=== PATIENT | male | born 1955 | race Caucasian/White ===

== ENCOUNTER 2018-03-25 15:49 | Inpatient (IN) ==
[2018-03-25] MEDS ORDERED: *HR* Heparin 5,000 UNIT/ML VIAL IVP PRN ×2 (15:50)
[2018-03-25] MEDS ORDERED: *HR* Heparin 5,000 UNIT/ML VIAL IVP ONE (15:50)
[2018-03-25] MEDS ORDERED: *HR* Midazolam HCl 5 MG/5 ML VIAL IVP ONE (15:52)
[2018-03-25] MEDS ORDERED: *HR* Ticagrelor 90 MG TABLET PO ONE (15:52)
[2018-03-25] MEDS ORDERED: *HR* FentaNYL (PF) 250 MCG/5 ML VIAL ONE (15:52)
--- NOTE | 2018-03-25 15:55 | Emergency Department Note ---
Disposition Clinical Impression: Cardiac arrest, STEMI (ST elevation myocardial infarction) Disposition: Admitted As Inpatient Condition: Critical General Adult HPI - General Chief complaint: ED Chest Pain Stated complaint: Chest pain Time Seen by Provider: 03/25/18 15:50 - Related Data Home Medications Medication Instructions Recorded Confirmed No Known Home Drugs 03/25/18 03/25/18 Allergies Allergy/AdvReac Type Severity Reaction Status Date / Time No Known Allergies Allergy Verified 03/25/18 16:01 Course Vital Signs Temperature 98.7 F 03/25/18 15:50 Pulse Rate 81 03/25/18 15:50 Respiratory Rate 20 03/25/18 15:50 Blood Pressure 133/87 03/25/18 15:50 O2 Sat by Pulse Oximetry 99 03/25/18 15:50 Temperature 97.9 F 03/25/18 17:56 Pulse Rate 66 03/25/18 18:39 Respiratory Rate 14 03/25/18 18:39 Blood Pressure 127/77 03/25/18 18:39 O2 Sat by Pulse Oximetry 98 03/25/18 18:39 Oxygen Delivery Oxygen Delivery Nasal Cannula Medical Decision Making - Lab Data Result diagrams: 03/25/18 15:56 03/25/18 16:00 Lab Results 03/25/18 03/25/18 03/25/18 Range/Units 15:50 15:56 16:00 WBC 13.8 H (4.3-11.1) K/mcL RBC 4.95 (4.19-5.50) M/mcL Hgb 14.5 (12.9-16.9) g/dL Hct 42.7 (37.5-50.1) % MCV 86.3 (83.0-100.0) fL MCH 29.3 (28.0-33.3) pg MCHC 34.0 (31.6-35.5) g/dL RDW 13.4 (11.5-14.5) % Plt Count 248 (140-400) K/mcL MPV 9.8 (9.4-12.4) fL Immature Gran % 0.4 (0-4) % Seg Neutrophils % 36.7 % Lymphocytes % 54.8 % Monocytes % 5.7 % Eosinophils % 1.8 % Basophils % 0.6 % Neutrophils # 5.1 (1.6-8.9) K/mcL Lymphocytes # 7.6 H (0.6-4.6) K/mcL Monocytes # 0.8 (0.0-1.3) K/mcL Eosinophils # 0.3 (0.0-0.6) K/mcL Basophils # 0.1 (0.0-0.2) K/mcL Reactive Lymphocytes Present A (Not Present) Immature Plt Fraction 2.7 (1.1-6.1) % PT 10.4 (9.4-12.1) Seconds INR 1.0 APTT 26.7 (26.0-36.0) Seconds Sodium 142 (136-145) mEq/L Potassium 3.0 L (3.5-5.1) mEq/L Chloride 107 (98-107) mEq/L Carbon Dioxide 24 (23-29) mEq/L BUN 13 (8-23) mg/dL Creatinine 1.16 (0.70-1.30) mg/dL Est GFR ( Amer) > 60 (> 60) Est GFR (Non-Af Amer) > 60 (> 60) BUN/Creatinine Ratio 11 (6-26) Glucose 146 H (70-105) mg/dL Calculated Osmolality 297 (280-300) Calcium 9.4 (8.6-10.3) mg/dL Troponin I < 0.03 (< 0.04) ng/mL Attestation Statement - Attestation Attestation: I examined this patient and my medical decision-making was reviewed with the Resident Physician. I agree with the documented findings, disposition and treatment plan as described except to the extent set forth below. [id number] time provided I was alerted to prehospital EMS ST segment elevation myocardial infarction pattern. We anticipated the patient's arrival. The patient reports 30 minutes of chest pain. He is diaphoretic. EMS had to defibrillate the patient twice for suspected ventricular fibrillation. The patient denies having any previous cardiac or other medical history. EKG repeated upon arrival showing ST segment elevation in the septal leads. The patient will go to the cardiac catheter lab. Protocol orders initiated
[2018-03-25] MEDS ORDERED: 0.9 % Sodium Chloride 1,000 ML ONE ×2 (15:56→16:03)
[2018-03-25] MEDS ORDERED: Nitroglycerin 1,000 MCG/10 ML VIAL IV ONE ×2 (15:56→16:30)
[2018-03-25] MEDS ORDERED: *HR* Heparin 10,000 UNIT/10 ML VIAL ONE (15:56)
[2018-03-25] MEDS ORDERED: ISOVUE-370 200 ML INFUS..BTL IV ONE ×2 (15:56→16:25)
[2018-03-25] MEDS ORDERED: Heparin 1,000 UNITS/500 mL 500 ML ONE (15:56)
[2018-03-25] MEDS ORDERED: Verapamil 5 MG/2 ML VIAL ONE (15:56)
[2018-03-25] MEDS ORDERED: Lidocaine Drip 2 GM/500 ML IV.SOLN IVC SCH ×2 (16:00)
[2018-03-25] MEDS ORDERED: Heparin 25,000 UNIT/500 ML D5W 25,000 UNIT/500 ML BAG IVC SCH (16:00)
--- NOTE | 2018-03-25 16:00 | Emergency Department Note ---
Disposition Clinical Impression: Cardiac arrest STEMI (ST elevation myocardial infarction) Qualifiers: Involved coronary artery: unspecified coronary artery Qualified Code(s): I21.3 - ST elevation (STEMI) myocardial infarction of unspecified site Disposition: Admitted As Inpatient Condition: Critical Forms: ED Satisfaction Letter Time of Disposition: 16:03 Chest Pain HPI - General Chief Complaint: ED Chest Pain Stated Complaint: Chest pain Time Seen by Provider: 03/25/18 15:50 Source: EMS Vital Signs Reviewed: Yes Nursing Notes Reviewed: Yes - History of Present Illness HPI Narrative: Mr. Abdalla comes from home via EMS reports of chest pain. In route, patient went into pulseless V. fib twice and was successfully cardioverted back to a perfusing rhythm. He is now awake. 30 minutes prior to arrival, patient was finishing planting a large push when he experienced a dull intense heavy central chest pain with bilateral arm heaviness. He did not have any dyspnea or nausea. PMH: Chronic pain. No history of CAD, ACS, hypertension, hyperlipidemia, diabetes. Severity scale (1-10): 5 - Related Data Home Medications Medication Instructions Recorded Confirmed No Known Home Drugs 03/25/18 03/25/18 Allergies Allergy/AdvReac Type Severity Reaction Status Date / Time No Known Allergies Allergy Verified 03/25/18 16:01 Limitations: ROS unobtainable due to patients medical condition Chest Pain PMH - Past Medical History Medical history: Reports: no medical history Psychiatric history: Reports: no psych history - Social History Smoking Status: Current every day smoker Alcohol use: Reports: none Drug use: Reports: none Physical Exam Vital Signs Reviewed General: Patient is alert, oriented, and in mild to moderate acute distress-he is just been defibrillated twice by EMS. Head: atraumatic, normocephalic Eye: normal appearance, no scleral icterus, no conjunctival injection ENT: mucous membranes moist, normal external ear exam Neck: normal inspection, trachea midline, full ROM Chest: normal inspection, symmetric chest rise Respiratory: Good respiratory effort. Bilateral breath sounds are clear without wheezing, crackles, or rhonchi. Cardiovascular: Regular rate and rhythm. No clicks, rubs, gallops, or murmors. Normal heart sounds. Bilateral radial pulses 2/4 and equal. Musculoskeletal: Spontaneously moving all extremities. Skin: Diaphoretic, cool, pink, intact. Neuro: Alert and oriented x4. Sensation light touch intact. Psych: Patient's affect is appropriate for situation. - General General appearance: alert, anxious Course Course Narrative: Squad called in noting that they have cardioverted the patient twice. [employer] called. On arrival, patient is awake, alert, oriented, answering questions appropriately, reports mild chest dullness. EKG shows STEMI in the LAD distribution. Additional peripheral IV access obtained and patient placed on lidocaine-100 mg bolus and 3 mg per minute drip. Brilenta, heparin, nitroglycerin ordered however, patient went to [employer] prior to administration. Patient's was brought bedside. She was updated to the current situation and the next steps. He is able speak with him prior to him going to [employer]. EKG dated 6 2017 at 15:52 interpreted as sinus rhythm with a rate of 81. Normal intervals. Normal axis. Significant ST elevation in leads V1, V2, V3, V4, V5, V6 most probably in V2 through V4. ST depression with T-wave inversion in lead 3 and aVF. Vital Signs Temperature 98.7 F 03/25/18 15:50 Pulse Rate 81 03/25/18 15:50 Respiratory Rate 20 03/25/18 15:50 Blood Pressure 133/87 03/25/18 15:50 O2 Sat by Pulse Oximetry 99 03/25/18 15:50 Temperature 98.7 F 03/25/18 15:50 Pulse Rate 81 03/25/18 15:50 Respiratory Rate 20 03/25/18 15:50 Blood Pressure 133/87 03/25/18 15:50 O2 Sat by Pulse Oximetry 99 03/25/18 15:50 Oxygen Delivery Oxygen Delivery Nasal Cannula Heart Score - Score History: Highly Suspicious EKG: Significant ST-Depression Age: 45-65 Risk Factors: 1-2 risk factors Troponin: 1-3x normal limit HEART Score Total: 7
[2018-03-25 16:09] LABS: Basophils # 0.1 K/mcL (0.0-0.2); Basophils % 0.6 %; Eosinophils # 0.3 K/mcL (0.0-0.6); Eosinophils % 1.8 %; Hematocrit 42.7 % (37.5-50.1); Hemoglobin 14.5 g/dL (12.9-16.9); Immature Granulocytes % 0.4 % (0-4); Immature Platelets 2.7 % (1.1-6.1); Lymphocytes # 7.6 K/mcL (0.6-4.6); Lymphocytes % 54.8 %; Mean Corpuscular Hemoglobin 29.3 pg (28.0-33.3); Mean Corpuscular Volume 86.3 fL (83.0-100.0); Mean Platelet Volume 9.8 fL (9.4-12.4); Monocytes # 0.8 K/mcL (0.0-1.3); Monocytes % 5.7 %; Neutrophils # 5.1 K/mcL (1.6-8.9); Platelet Count 248 K/mcL (140-400); Red Blood Count 4.95 M/mcL (4.19-5.50); Red Cell Distribution Width 13.4 % (11.5-14.5); Segmented Neutrophils % 36.7 %
[2018-03-25] MEDS ORDERED: Tirofiban 12.5 MG/250ML 12.5 MG/250 ML BAG ONE (16:13)
[2018-03-25 16:17] LABS: Prothrombin Time 10.4 Seconds (9.4-12.1)
[2018-03-25 16:19] LABS: Activated Partial Thrombo Time 26.7 Seconds (26.0-36.0)
[2018-03-25] MEDS ORDERED: Lidocaine 2% Syringe 100 MG/5 ML IVP ONE (16:30)
[2018-03-25 16:31] LABS: BUN/Creatinine Ratio 11 (6-26); Blood Urea Nitrogen 13 mg/dL (8-23); Calcium 9.4 mg/dL (8.6-10.3); Carbon Dioxide 24 mEq/L (23-29); Chloride 107 mEq/L (98-107); Glucose 146 mg/dL (70-105); Osmolality,Calculated 297 (280-300); Sodium 142 mEq/L (136-145); Troponin I < 0.03 ng/mL (< 0.04); eGFR For African Americans > 60 (> 60); eGFR For Non-African Americans > 60 (> 60)
[2018-03-25 16:35] LABS: Reactive Lymphocytes Present (Not Present)
[2018-03-25] MEDS ORDERED: *HR* Ticagrelor 90 MG TABLET ONE (16:54)
[2018-03-25] MEDS ORDERED: Tirofiban 12.5 MG/250ML 12.5 MG/250 ML BAG IVC SCH (17:00)
--- NOTE | 2018-03-25 17:04 | Pre-Sedation Evaluation ---
Pre-sedation evaluation - Pre-sedation checklist Date of procedure: 03/25/18 Procedure: [facility] Recent Vitals: Last Vital Signs Temp 98.7 F 03/25/18 16:04 Pulse 81 03/25/18 15:50 Resp 22 03/25/18 16:04 BP 133/87 03/25/18 16:04 Pulse Ox 99 03/25/18 15:50 H&P (including ROS) documented in medical record: Yes Previous reaction to sedatives/anesthetics: No Dietary Status: unknown Airway Assessment: Patient can open mouth completely, TMJ function normal ASA Classification *see protocol: CLASS II-Mild systemic disease, E-EMERGENCY- Add to any of the above to indicate emergent (stemi - critically ill pt sp defibrillation) Plan of Care: Pt appropriate candidate for procedure/moderate/conscious sedation , Risks/benefits of procedure/sedation discussed w/ patient/family, If not NPO; Risk of intake outweiged by necessity to perform procedure
--- NOTE | 2018-03-25 17:06 | Cardiology History & Physical ---
Date of Encounter: 03/25/18 Time of Encounter: 17:00 Assessment and Plan (1) Cardiac arrest Current Visit: Yes Status: Acute Anteroseptal current of injury - life threatening illness. Critical care time 1 hour. A/R/B of LHC discussed with him and he is aware and agreeable with proceeding. Aspirin, brilinta, and heparin to be given. EF assessment, echo. High intensity statin. The assessment and plan as outlined above was discussed with the patient and/or family members who expressed understanding and agreement. All questions were answered. (2) STEMI (ST elevation myocardial infarction) Current Visit: Yes Status: Acute Emergent [facility]. The assessment and plan as outlined above was discussed with the patient and/or family members who expressed understanding and agreement. All questions were answered. Qualifiers: Involved coronary artery: LAD coronary artery Qualified Code(s): I21.02 - ST elevation (STEMI) myocardial infarction involving left anterior descending coronary artery History of Present Illness Chief complaint: chest pain HPI: Mr. Abdalla is a 62 year old male with no previous cardiac history was planting a tree today ~330pm when he had sudden onset severe 10-10 retrosternal chest pressure radiating across chest associated with diaphoresis. Called EMS and was defibrillated twice in the squad before arriving here with EKG showing anteroseptal NV current of injury. Patient continued having chest discomfort and taken emergently to lab associate. No other medical issues except for some chronic pain. Past Med Surg Social Fam HX - Past Medical History Medical history: no medical history Psychiatric history: no psych history - Social History Smoking Status: Current every day smoker Smokeless Tobacco Status: No Alcohol use: none Drug use: none Medications and Allergies No Known Home Drugs 03/25/18 [History] 3 Allergy/AdvReac Type Severity Reaction Status Date / Time No Known Allergies Allergy Verified 03/25/18 16:01 All Systems Review: The remainder of the systems were reviewed and are negative - Constitutional Constitutional: no chills, no fever(s) - EENT Eyes: no blurred vision, no loss of vision Nose, mouth and throat: no bleeding gums, no epistaxis - Cardiovascular Cardiovascular: chest pain at rest, chest pain with exertion - Respiratory Respiratory: no hemoptysis, no wheezing - Gastrointestinal Gastrointestinal: no hematemesis, no hematochezia - Genitourinary Genitourinary: no hematuria, no nocturia - Musculoskeletal Musculoskeletal: no abnormal gait, no muscle cramps - Integumentary Integumentary: no erythema, no unusual bruising - Neurological Neurological: syncope, no abnormal speech, no tingling - Psychiatric Psychiatric: no anxiety, no depression - Hematological/Lymphatic Hematologic/Lymphatic: no easy bleeding, no easy bruising Physical Examination General: Conversant, Other (mild distress) HEENT: Atraumatic Neck: No JVD Cardiac: Reg Rate and Rhythm Lungs: Normal Breath Sounds Neuro: Alert and responsive Abdomen: Soft Skin: No rashes noted on visualized skin Musculoskeletal: No Chest Wall Tenderness Extremities: No Edema Results 03/25/18 15:56 03/25/18 16:00 - EKG Interpretation EKG results cardiology: personally reviewed, sinus rhythm (anteroseptal current of injury)
--- NOTE | 2018-03-25 17:11 | Invasive Diagnostic Lab Proc ---
Name: Nic Abdalla Date of Study: 03/25/2018 Date: 1955 Ht: 66.1in Medical Record#: [id number] Age: 62 Wt: 218.26lb Gender: Male BSA: 2.08 Order #: [id number] BMI: 35.08 Physicians Procedure Physician: Peter Farrell MD, FACC Referring MD: Referring MD: Staff Name Position [facility] Monitor 04:04 PM Deepak Estrada RN Curator Of Collections 04:04 PM Livier Bain RT (R) Scrub 04:04 PM Indications Indication STEMI Procedures Performed Procedure L HRT ARTERY/VENTRICLE ANGIO PRQ CARD LAVINIA STENT W/ANGIO 1 VSL Pre-Procedure Checklist Informed consent is complete signed and on chart. H&P is on chart. ID band is on and ID verified with patient. Patient NPO for procedure The procedure was described for the patient and questions were answered. Blood Pressure: 123/82 ECG is on chart. Rhythm: NSR Plan of Care Patient will tolerate the procedure without complications. Adequate level of comfort will be maintained. Hemodynamics will remain stable Patient will recover from procedure without complications. Respiratory function will be maintained. Cardiac rhythm will remain stable. Patient temperature will be maintained. Patient and/or family have verbalized understanding of the procedure. Patient Education Allergies No Known Allergies NKDA Vital Signs Time BP (mmHg) HR (bpm) O2 Sat. RR (bpm) LOC 04:10 PM / % 4 = Oriented but drowsy 04:10 PM / % 4 = Oriented but drowsy 04:25 PM / % 4 = Oriented but drowsy 04:04 PM 123 / 82 73 99 % 04:09 PM 125 / 75 73 100 % 04:14 PM 105 / 66 69 92 % 04:19 PM 99 / 52 66 91 % 04:24 PM 93 / 59 72 96 % 04:29 PM 89 / 47 66 92 % 04:34 PM 91 / 44 62 96 % 04:39 PM 91 / 39 69 96 % 04:44 PM 105 / 48 66 97 % Procedural Medications Time Medication Dose Units Method Given By 04:11 PM Oxygen 2 L/min nasal cannula Deepak Estrada RN 04:11 PM Versed 2 mg Intravenous Deepak Estrada RN 04:11 PM Fentanyl 50 mcg Intravenous Deepak Estrada RN 04:12 PM Lidocaine 2% 0.5 ml Subcutaneous Peter Farrell MD, FACC 04:12 PM Heparin 4000 units Nitroglycerin 200 mcg Verapamil 2.5 mg Intraarterial Peter Frarell MD, FACC 04:19 PM Aggrastat Bolus: 50 ml Intravenous Deepak Estrada RN 04:19 PM Aggrastat 12.5mg/250ml 18 ml/hr Intravenous Deepak Estrada RN 04:19 PM Oxygen 4 L/min nasal cannula Deepak Estrada RN 04:28 PM Nitroglycerin 100 mcg Intracoronary Peter Farrell MD 04:30 PM Nitroglycerin 100 mcg Intracoronary Peter Farrell MD 04:38 PM Nitroglycerin 200 mcg Intracoronary Peter Farrell MD 04:41 PM Brilinta 180 mg Orally Deepak Estrada RN Joseph Score Preprocedure Postprocedure Activity Activity Circulation Circulation Consciousness Consciousness O2 Saturation O2 Saturation Respiratory Respiratory Total Score Total Score Contrast Agent: Isovue Diagnostic Contrast: 144 ml Total Contrast: 144 ml Fluoro Dose: 830 mGy Activated Clotting Time Time Seconds to Clot 04:31 PM 307 Procedure Log Time Note Enter By 04:00 PM Pt arrived to medical lab specialist 2 at 16:00 [facility] 04:04 PM Vitals capture started with the following parameters, Patient=Adult, Interval=5 min, Initial Febvbxdm=803 mmHg, Deflation Rate=5 mmHg, Cuff placed on Right Arm 04:04 PM Britta Benson RN Position: Monitor Time in: 16:04 [email or web address] 04:04 PM Deepak Estrada RN Position: Curator Of Collections Time in: 16:04 mm 04:04 PM Livier Bain RT (R) Position: Scrub Time in: 16:04 [email or web address] 04:04 PM Patient charges- Angio tray pack, Navilyst 3mm J, Pulse Oximetry and ACIST tubing and transducer tsmm 04:04 PM Case Delayed No mm 04:04 PM Hair removed from procedure site in procedure lab using clippers. Right wrist & Right groin prepped with Chloraprep by Livier Bain (R), then patient was draped. Skin intact. mm 04:04 PM Deven paged/called 16:04. tsoummers 04:04 PM Deven responded and notified patient is ready 16:04 [email or web address] 04:04 PM Physician arrived 16:04 mm 04:04 PM Sign in performed according to hospital policy. [email or web address] 04:04 PM Meet and greet completed tsoummers 04:04 PM Procedure start 16:04 tsoummers 04:04 PM CathStat 04:04 PM HR=73 bpm, DGWW=581/82 mmhg, SpO2=99.0 % 04:05 PM Recorded ECG: HR=81 Condition=Condition 1 04:08 PM Recorded ECG: HR=72 Condition=Condition 1 04:09 PM HR=73 bpm, UUNT=567/75 mmhg, PtR9=096.0 % 04:10 PM Time: 16:10 Patient comfortable and pain free: Yes [email or web address] 04:10 PM Time: 16:10LOC: 4 = Oriented but drowsy tsoummers 04:10 PM Clinical Presentation: STEMI or equivalent [email or web address] 04:10 PM Time out performed according to hospital policy tsoumm 04:11 PM Time: 16:11 Oxygen on at 2 L/min per nasal cannula by Deepak Estrada RN 04:11 PM Time: 16:11 Versed 2 mg Intravenous Given by Deepak Estrada RN 04:11 PM Time: 16:11 Fentanyl 50 mcg Intravenous Given by Deepak Estrada RN 04:12 PM Time: 16:12 0.5 ml Lidocaine 2% to right radial Subcutaneous Given by Peter Farrell MD, [facility] 04:12 PM Access obtained by percutaneous puncture. 6Fr 10cm Terumo Glidesheath sheath placed in right Radial artery. [id number] mm 04:12 PM Time: 16:12 Patient given 4,000 units Heparin, 200 mcg Nitroglycerin, and 2.5 mg Verapamil Intraarterial by Peter Farrell MD, [facility]. This is given to reduce risk of vessel spasm and thrombosis. tsoumm 04:13 PM 6Fr CLS 3.0 Runway guide catheter was used to cannulate the PCI vessel successfully. reused? No tsoummers 04:13 PM 0.035 260cm Navilyst 3mmJ wire [id number] mm 04:13 PM LCA angiography performed in multiple views. oummers 04:13 PM Recorded Pressure: Ao, HR=72, Condition=Condition 1 (Aorta) Ao 82/53/67 04:14 PM J wire removed tsmm 04:14 PM HR=69 bpm, TPMB=343/66 mmhg, SpO2=92.0 % 04:15 PM .014 [place] 180cm guide wire across target lesion- successful. reused? No mm 04:16 PM 2.5 mm x 12 mm Emerge Monorail balloon across target lesion- successful. reused? No mm 04:17 PM Lesion found in 1st Marginal. Pre Stenosis: 90 Pre MAR Flow: 3: Complete and Brisk Flow/Perfusion 04:17 PM Circumflex, Obtuse Marginal, Left Posterior Descending, and Left Posterolateral Coronary Arteries with 90 % stenosis. If graft is supplying this area, 0 % stenosis [facility] 04:18 PM Balloon inflated @ 6 nani for 8 seconds [facility] 04:19 PM Balloon inflated @ 10 nani for 10 seconds [facility] 04:19 PM Time: 16:19 Aggrastat Bolus: 50 ml Intravenous Given by Deepak Estrada RN Mcfadden pump [facility] 04:19 PM Time: 16:19 Aggrastat 12.5mg/250ml 18 ml/hr Intravenous Given by Deepak Estrada RN Mcfadden pump [facility] 04:19 PM HR=66 bpm, NIBP=99/52 mmhg, SpO2=91.0 % 04:19 PM Time: 16:19 Oxygen on at 4 L/min per nasal cannula [facility] 04[facility] PM Balloon catheter removed intact. 04:21 PM 3.0mm x 24mm Synergy drug-eluting stent across target lesion- successful Lot #[id number] 04:22 PM Stent deployed @ 12 nani for 15 seconds 04:23 PM Stent delivery system removed intact. 04:24 PM 3.0 mm x 15mm NC Trek Rx balloon across target lesion- successful. reused? No mm 04:24 PM Recorded Pressure: Ao, HR=65, Condition=Condition 1 (Aorta) Ao 75/48/61 04:24 PM HR=72 bpm, NIBP=93/59 mmhg, SpO2=96.0 % 04:25 PM Balloon inflated @ 16 nani for 11 seconds oumm 04:25 PM Time: 16:10LOC: 4 = Oriented but drowsy tsoumm 04:25 PM Time: 16:10 Patient comfortable and pain free: Yes [email or web address] 04:26 PM Pressure channel 1 zeroed. 04:26 PM Recorded Pressure: Ao, HR=61, Condition=Condition 1 (Aorta) Ao 104/82/94 04:28 PM Time: 16:28 Nitroglycerin 100 mcg Intracoronary Given by Peter Farrell MD 04:29 PM HR=66 bpm, NIBP=89/47 mmhg, SpO2=92.0 %, Comment=nsr 04:30 PM Time: 16:30 Nitroglycerin 100 mcg Intracoronary Given by Peter Farrell MD 04:31 PM At 16:31 the ACT was 307 seconds. tsoummers 04:31 PM Balloon catheter removed intact. tsoummers 04:33 PM Guide wire removed intact. tsoummers 04:33 PM Guide catheter removed intact. tsoumm 04:34 PM 5Fr TIG catheter inserted over the wire [facility] 04:34 PM Coronary Dominance: Left ts 04:34 PM HR=62 bpm, NIBP=91/44 mmhg, SpO2=96.0 %, Comment=nsr 04:35 PM RCA angiography performed in multiple views. tsoumm 04:35 PM [facility] 04[facility] PM 5Fr Pigtail catheter inserted over the wire [facility] mm 04:36 PM Catheter selectively placed in left ventricle tsoumm 04:36 PM Bolus angiogram of left Ventricle complete: 10 ml/sec for a total of 30 mls [facility] 04:37 PM Recorded Pressure: LV, HR=?, Condition=Condition 1 (Left Ventricle) LV ?/?/? 04:37 PM Recorded Pressure: LV, HR=?, Condition=Condition 1 (Left Ventricle) LV ?/?/? 04:37 PM Recorded Pressure: LV, HR=11, Condition=Condition 1 (Left Ventricle) LV ?/?/? 04:38 PM Recorded Pressure: LV, HR=18, Condition=Condition 1 (Left Ventricle) LV 121/20/50 04:38 PM Time: 16:38 Nitroglycerin 200 mcg Intracoronary Given by Peter Farrell MD 04:38 PM Pressure channel 1 zeroed. 04:39 PM Recorded Pressure: LV, HR=23, Condition=Condition 1 (Left Ventricle) LV 100/14/34 04:39 PM HR=69 bpm, NIBP=91/39 mmhg, SpO2=96.0 % 04:40 PM Recorded Pressure: LV, Ao, HR=69, Condition=Condition 1 (Left Ventricle) LV 103/12/31, (Aorta) Ao 90/60/73 04:40 PM Catheter removed tsoumm 04:40 PM Time: 16:25 Patient comfortable and pain free: Yes tsoummers 04:40 PM Time: 16:25LOC: 4 = Oriented but drowsy tsoummers 04:41 PM Procedure completed at 16:41 tsoummers 04:41 PM Time: 16:41 Brilinta 180 mg Orally Given by Deepak Estrada RN tsoumm 04:42 PM Did you address MAR flow and Dominance? Yes oummers 04:42 PM Sign out completed: Radiation Dose 829.50 mGy Fluoro Time: 5.9 Isovue 370 - 200ml contrast 144 ml given by Peter Farrell MD, [facility]. Complications: NoneCardiac Rehab Consult needed: YesConfirmed administered medications: Yes oummers 04:42 PM Arterial sheath pulled, Vasc Band closure device used and was Successful S/N. tsoummers 04:42 PM 10 ml air in Vasc Band. tsoummers 04:44 PM HR=66 bpm, SYNW=099/48 mmhg, SpO2=97.0 % 04:44 PM Lesion found in Proximal LAD. Pre Stenosis: 100 Pre MAR Flow: 0: No Flow/No perfusion tsoummers 04:44 PM Proximal Left Anterior Descending Coronary Artery with 100% stenosis. If graft is supplying this territory, 0 % stenosis. tsoummers 04:47 PM Post ECG NSR tsoummers 04:47 PM Estimated Blood Loss: less than 20cc tsoummers 04:47 PM Post Blood Pressure 105/48 tsoummers 04:47 PM 16:47 Post Pulses Rt Radial 1+ tsoummers 04:47 PM Information taught tsoummers 04:47 PM Information taught PCI, Cardiac Cath, and Vasc Band tsoummers 04:47 PM Education needs Procedure, Plan of Care, and Responsibilities of Patient in Care tsoummers 04:47 PM Learning barriers :None tsoummers 04:47 PM Education Methods Verbal tsoummers 04:47 PM Education evaluation Able to repeat information [facility] 04:47 PM Site status No bleeding/hematoma - Rt Wrist as reported by Livier Bain RT (R) at 16:47 [facility] 04[facility]48 PM Plavix, Effient or Brilinta given Yes [email or web address] 04:48 PM Delay to floor No tsoumm 04:48 PM Family placed in consult room. [email or web address] 04:48 PM Complications: None [facility] 04:48 PM Fluoro Time: 5.9 [facility] 04:48 PM Isovue 370 - 200ml contrast [address] Farrell. [facility] 04:48 PM Radiation Dose 829.50 mGy [facility] 04:56 PM Report given to Zenia FERGUSON Pt taken to ICU Room #3. 16:56 [facility] 04[facility]56 PM Patient out of room: 16:56 [facility] Complications Complication None Hemodynamics Pressures Site Systolic/A Wave Diastolic/V Wave Mean AO 82 53 67 AO 75 48 61 AO 104 82 94 LV LV LV LV 121 20 50 LV 100 14 34 LV 103 12 31 AO 90 60 73 Post Procedure Information Blood Pressure: 105/48 mmHg Rhythm: NSR Post procedural instructions were given Closure Device Time Device Success/Fail 03/25/2018 4:42:00 PM Mechanical Compression Successful Site Checks Time Location Status Staff Sheath In? Note 04:47 PM Rt Wrist No bleeding/hematoma Livier Bain RT (R) Pulses Time Site Pre-Procedure Post-Procedure Note 4:47:00 PM Rt Radial 1+ Updated by Britta Benson RN on 03/25/2018 4:57:36 PM electronically signed on 03/25/2018 5:03:06 PM with status of Final
[2018-03-25] MEDS: *HR* HYDROcodone/Acet 5/325 mg TABLET PO PRN ×2 (18:42→23:12)
[2018-03-25] MEDS: *HR* Ticagrelor 90 MG TABLET PO SCH (20:13)
[2018-03-25] MEDS: Nitroglycerin 0.4 MG TAB.SUBL SL PRN ×2 (20:58→21:26)
[2018-03-26] MEDS: Ondansetron 4 MG/2 ML VIAL IVP PRN ×2 (02:21→09:29)
[2018-03-26 04:22] LABS: Basophils % 0.2 %; Eosinophils % 0.1 %; Hematocrit 38.9 % (37.5-50.1); Hemoglobin 13.1 g/dL (12.9-16.9); Immature Granulocytes % 0.3 % (0-4); Lymphocytes # 2.8 K/mcL (0.6-4.6); Lymphocytes % 18.3 %; Mean Corpuscular HGB Conc 33.7 g/dL (31.6-35.5); Mean Corpuscular Hemoglobin 29.3 pg (28.0-33.3); Mean Platelet Volume 10.3 fL (9.4-12.4); Monocytes # 0.8 K/mcL (0.0-1.3); Monocytes % 5.5 %; Neutrophils # 11.4 K/mcL (1.6-8.9); Platelet Count 192 K/mcL (140-400); Red Blood Count 4.47 M/mcL (4.19-5.50); Red Cell Distribution Width 13.8 % (11.5-14.5); Segmented Neutrophils % 75.6 %
[2018-03-26] MEDS: Nitroglycerin 0.4 MG TAB.SUBL SL PRN ×3 (04:27→04:38)
[2018-03-26 04:42] LABS: BUN/Creatinine Ratio 16 (6-26); Blood Urea Nitrogen 15 mg/dL (8-23); Calcium 8.7 mg/dL (8.6-10.3); Carbon Dioxide 23 mEq/L (23-29); Chloride 109 mEq/L (98-107); Glucose 125 mg/dL (70-105); Osmolality,Calculated 290 (280-300); Potassium 4.2 mEq/L (3.5-5.1); Sodium 139 mEq/L (136-145); eGFR For African Americans > 60 (> 60); eGFR For Non-African Americans > 60 (> 60)
[2018-03-26] MEDS ORDERED: Nitroglycerin 1 INCH/GM PACKET TP ONE (04:49)
[2018-03-26] MEDS ORDERED: *HR* Enoxaparin 40 MG/0.4 ML SYRINGE SQ SCH (06:00)
[2018-03-26] MEDS: *HR* HYDROcodone/Acet 5/325 mg TABLET PO PRN ×2 (06:22→18:56)
[2018-03-26] MEDS ORDERED: Perflutren Lipid Microsphere 1.3 ML in 0.9 % Sodium Chloride 8.7 ML IVP ONE (07:45)
[2018-03-26] MEDS: *HR* Ticagrelor 90 MG TABLET PO SCH ×2 (08:33→21:31)
--- NOTE | 2018-03-26 08:44 | Cardiology Progress Note ---
Date of Encounter: 03/26/18 Time of Encounter: 08:00 Assessment and Plan (1) STEMI (ST elevation myocardial infarction) Current Visit: Yes Status: Acute Acute anteroseptal MS s/p successful PCI with LAVINIA to pLAD; has existing 80% OM1 disease, plan to stage as outpatient if remains chest pain free as inpatient. EF 55% per LV gram. TTE pending. No prior cardiac history. Cardiac rehab, DAPT (asa + brilinta), statin, and BB. Had chest discomfort overnight, likely secondary to defibrillation x2 on EMS. ECG improved. No issues with radial cath site. Labs, vitals stable. Plan to step out of ICU later today or in AM if remains stable. Continue to monitor closely. Qualifiers: Involved coronary artery: LAD coronary artery Qualified Code(s): I21.02 - ST elevation (STEMI) myocardial infarction involving left anterior descending coronary artery (2) Cardiac arrest Current Visit: Yes Status: Acute s/p defibrillation x2 for reported V-fib en route to [facility]. Secondary to acute MS No recurrent ventricular arrhythmias noted s/p PCI. Continue to monitor. (3) Tobacco dependence Current Visit: Yes Status: Acute Smoking cessation counseling provided. Has interest in quitting post discharge. Nicotine patches as inpatient. (4) Chronic pain Current Visit: Yes Status: Acute Resume home medications including percocet. Qualifiers: Chronic pain type: chronic pain syndrome Qualified Code(s): G89.4 - Chronic pain syndrome Discussion w patient/family: The assessment and plan as outlined above was discussed with the patient and/or family members who expressed understanding and agreement. All questions were answered. Thank you for involving us in the care of your patient. Please call with any questions. The patient will be discussed and reviewed with Dr. Farrell; changes to be made accordingly. Subjective Principal diagnosis: STEMI, anteroseptal Interval history: Seen and examined. Reports mild chest tightness this morning, was unable to sleep overnight. Pain worsens with deep breathing. Different from presenting chest. No issues with right radial cath site. Objective Vital Signs, Last 4 Hours Temp Pulse Resp BP Pulse Ox 03/26/18 08:00 55 16 112/67 97 03/26/18 07:48 97.5 F L 03/26/18 06:00 57 16 106/70 98 03/26/18 05:00 48 12 114/74 94 General: Conversant, No Apparent Distress HEENT: Atraumatic, Normocephaly, Mucus Membranes Moist Cardiac: Reg Rate and Rhythm, Normal S1 and S2 Lungs: Normal Breath Sounds Neuro: Alert and responsive Abdomen: Soft Skin: No rashes noted on visualized skin Musculoskeletal: No Chest Wall Tenderness Extremities: No Edema, Normal Pulses Other: right radial cath site: dressing C/D/I, +2 pulses, brisk cap refill Results 03/26/18 03:53 03/26/18 03:53 Lab Results 03/26/18 03/26/18 03:53 03:53 WBC 15.0 H Hgb 13.1 Hct 38.9 Plt Count 192 Sodium 139 Potassium 4.2 D Chloride 109 H Carbon Dioxide 23 BUN 15 Creatinine 0.92 Glucose 125 H Calcium 8.7 Active Medications Acetaminophen (Tylenol) 500 mg PO Q6H PRN PRN Reason: Mild Pain Stop: 09/24/18 16:59 Last Admin: 03/25/18 20:12 Dose: 500 mg Hydrocodone Bitart/Acetaminophen ([place] 5-325 Mg) 1 tab PO Q4H PRN PRN Reason: Moderate Pain Stop: 09/24/18 17:03 Last Admin: 03/26/18 06:22 Dose: 1 tab Aspirin (Aspirin) 81 mg PO DAILY YUE Stop: 09/25/18 09:01 Last Admin: 03/26/18 08:33 Dose: 81 mg Diphenhydramine HCl (Benadryl) 25 mg PO HS PRN PRN Reason: Insomnia Stop: 09/24/18 17:03 Last Admin: 03/25/18 23:12 Dose: 25 mg Enoxaparin Sodium (Lovenox) 40 mg SQ 0600 YUE PRN Reason: Protocol Stop: 09/25/18 06:01 Last Admin: 03/26/18 06:23 Dose: 40 mg Metoprolol Tartrate (Lopressor) 12.5 mg PO BID YUE Stop: 09/24/18 21:01 Last Admin: 03/26/18 08:33 Dose: 12.5 mg Nicotine (Nicoderm) 21 mg TD DAILY YUE PRN Reason: Protocol Stop: 09/25/18 09:01 Nitroglycerin (Nitroglycerin) 0.4 mg SL Q5MIN PRN PRN Reason: Chest Pain Stop: 09/24/18 16:59 Last Admin: 03/26/18 04:38 Dose: 0.4 mg Ondansetron HCl (Zofran) 4 mg IVP Q8H PRN PRN Reason: Nausea And Vomiting Stop: 09/24/18 16:59 Last Admin: 03/26/18 02:21 Dose: 4 mg Oxycodone/Acetaminophen (Percocet 5/325) 1 each PO Q6HR YUE Stop: 09/25/18 12:01 Rosuvastatin Calcium (Crestor) 40 mg PO HS YUE Stop: 09/24/18 21:01 Last Admin: 03/25/18 20:13 Dose: 40 mg Ticagrelor (Brilinta) 90 mg PO BID YUE Stop: 09/24/18 21:01 Last Admin: 03/26/18 08:33 Dose: 90 mg - Imaging and Cardiology Echo: pending Cardiac cath: report reviewed Other Results: 12 hour tele: avg HR=56. SB. - EKG Interpretation EKG results cardiology: personally reviewed Consult Discharge Plan - Plan Referrals: NONE,PCP [Primary Care Provider] -
[2018-03-26] MEDS ORDERED: Nicotine 21 MG PATCH.TD24 TD SCH (09:00)
[2018-03-26] MEDS ORDERED: Aspirin 81 MG TAB.CHEW PO SCH (09:00)
[2018-03-26] MEDS ORDERED: *HR* OxyCODONE/APAP 5/325 TABLET PO PRN (09:44)
[2018-03-26] MEDS ORDERED: Ondansetron 4 MG/2 ML VIAL IVP PRN (11:56)
[2018-03-26] MEDS ORDERED: Nitroglycerin 0.4 MG TAB.SUBL SL PRN (11:56)
[2018-03-26] MEDS ORDERED: *HR* OxyCODONE/APAP 5/325 TABLET PO SCH (12:00)
[2018-03-26] MEDS: *HR* OxyCODONE/APAP 5/325 TABLET PO PRN ×2 (16:50→22:44)
[2018-03-26] MEDS: Nicotine 21 MG PATCH.TD24 TD SCH (17:25)
[2018-03-27] MEDS: *HR* HYDROcodone/Acet 5/325 mg TABLET PO PRN ×4 (01:01→20:49)
[2018-03-27] MEDS: *HR* OxyCODONE/APAP 5/325 TABLET PO PRN ×3 (05:23→18:49)
[2018-03-27 05:31] LABS: Basophils % 0.3 %; Eosinophils # 0.1 K/mcL (0.0-0.6); Eosinophils % 0.4 %; Hematocrit 41.8 % (37.5-50.1); Immature Granulocytes % 0.4 % (0-4); Lymphocytes # 3.5 K/mcL (0.6-4.6); Lymphocytes % 25.2 %; Mean Corpuscular HGB Conc 33.5 g/dL (31.6-35.5); Mean Corpuscular Hemoglobin 29.1 pg (28.0-33.3); Mean Corpuscular Volume 86.9 fL (83.0-100.0); Monocytes % 7.3 %; Neutrophils # 9.1 K/mcL (1.6-8.9); Platelet Count 183 K/mcL (140-400); Red Blood Count 4.81 M/mcL (4.19-5.50); Red Cell Distribution Width 13.8 % (11.5-14.5); Segmented Neutrophils % 66.4 %
[2018-03-27 05:52] LABS: BUN/Creatinine Ratio 12 (6-26); Blood Urea Nitrogen 11 mg/dL (8-23); Calcium 8.8 mg/dL (8.6-10.3); Carbon Dioxide 24 mEq/L (23-29); Chloride 111 mEq/L (98-107); Glucose 94 mg/dL (70-105); Osmolality,Calculated 295 (280-300); Potassium 3.7 mEq/L (3.5-5.1); Sodium 143 mEq/L (136-145); eGFR For African Americans > 60 (> 60); eGFR For Non-African Americans > 60 (> 60)
[2018-03-27] MEDS ORDERED: *HR* Enoxaparin 40 MG/0.4 ML SYRINGE SQ SCH (06:00)
[2018-03-27] MEDS: *HR* Ticagrelor 90 MG TABLET PO SCH ×2 (08:54→20:49)
[2018-03-27] MEDS: Nicotine 21 MG PATCH.TD24 TD SCH (08:55)
[2018-03-27] MEDS ORDERED: Metoprolol XL (24 HR) Succ 25 MG TAB.ER.24H PO SCH (09:00)
[2018-03-27] MEDS ORDERED: Aspirin 81 MG TAB.CHEW PO SCH (09:00)
--- NOTE | 2018-03-27 11:35 | Cardiology Progress Note ---
Date of Encounter: 03/27/18 Time of Encounter: 11:33 Assessment and Plan (1) Cardiac arrest Current Visit: Yes Status: Acute s/p defibrillation x2 for reported V-fib en route to [facility]. Secondary to acute CO. TTE revewed. EF 35-40%. No recurrent ventricular arrhythmias noted s/p PCI. 24 hour telemetry shows NSR. Avg HR 67 bpm. Continue to monitor. (2) STEMI (ST elevation myocardial infarction) Current Visit: Yes Status: Acute Acute anteroseptal CO s/p successful PCI with LAVINIA to pLAD; has existing 80% OM1 disease, plan to stage as outpatient. Denies recurrent pain except for occasional discomfort with deep breaths. EF 55% per LV gram. TTE shows EF 35-40% with modrate segmental dysfunction. No LV thrombus. Cardiac rehab consulted. Importance of DAPT (asa + brilinta) uninterrupted for minimum one year reviewed. Continue statin and BB. No issues with radial cath site. Labs, vitals stable. Plan to step out of ICU today. No bed available yesterday. Ambulate in hallways to access for symptoms. Continue to monitor closely. Plan for d/c in am if no new events. Qualifiers: Involved coronary artery: LAD coronary artery Qualified Code(s): I21.02 - ST elevation (STEMI) myocardial infarction involving left anterior descending coronary artery (3) Tobacco dependence Current Visit: Yes Status: Acute Smoking cessation counseling provided. Nicotine patches as inpatient. (4) Chronic pain Current Visit: Yes Status: Acute Resume home medications including percocet. Qualifiers: Chronic pain type: chronic pain syndrome Qualified Code(s): G89.4 - Chronic pain syndrome (5) Cardiomyopathy Current Visit: Yes Status: Acute New ischemic cardiomyopathy post CO. EF 35-40% with moderate segmental dysfunction. Currently euvolemic. Continue toprol xl. Add jez inhibitor. CHF education reviewed. [place] sodium diet and daily weights. Cardiac rehab discussed. Qualifiers: Cardiomyopathy type: ischemic Qualified Code(s): I25.5 - Ischemic cardiomyopathy Discussion w patient/family: The assessment and plan as outlined above was discussed with the patient and/or family members who expressed understanding and agreement. All questions were answered. Thank you for involving us in the care of your patient. Please call with any questions. Subjective Principal diagnosis: STEMI, anteroseptal Interval history: Mr. Abdalla denies recurrent chest pain except for occasional pain with deep breaths. Ambulating in his room without symptoms. No problem with right radial access site. Objective Vital Signs, Last 4 Hours Temp Pulse Resp BP Pulse Ox 03/27/18 09:09 79 03/27/18 09:00 82 14 126/72 94 03/27/18 08:00 98.9 F General: Conversant, No Apparent Distress HEENT: Atraumatic, Normocephaly, Mucus Membranes Moist Neck: No JVD, Normal carotid pulses Cardiac: Reg Rate and Rhythm, Normal S1 and S2, No Murmur Lungs: Normal Breath Sounds, No Wheeze, Rales, Rhonchi Neuro: Alert and responsive, No focal deficits noted Abdomen: Soft, Non-Tender Skin: No rashes noted on visualized skin Musculoskeletal: No Chest Wall Tenderness Extremities: No Clubbing, No Cyanosis, No Edema, Normal Pulses, Other Results 03/27/18 05:16 03/27/18 05:16 Lab Results 03/27/18 03/27/18 05:16 05:16 WBC 13.8 H Hgb 14.0 Hct 41.8 Plt Count 183 Sodium 143 Potassium 3.7 Chloride 111 H Carbon Dioxide 24 BUN 11 Creatinine 0.89 Glucose 94 Calcium 8.8 - Imaging and Cardiology Echo: report reviewed - EKG Interpretation EKG results cardiology: personally reviewed Consult Discharge Plan - Plan Referrals: NONE,PCP [Primary Care Provider] -
--- NOTE | 2018-03-27 16:32 | Electrocardiograph Report ---
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
--- NOTE | 2018-03-27 16:36 | Electrocardiograph Report ---
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
--- NOTE | 2018-03-27 16:38 | Electrocardiograph Report ---
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
[2018-03-27] MEDS ORDERED: *HR* HYDROcodone/Acet 5/325 mg TABLET PO PRN (21:37)
[2018-03-27] MEDS ORDERED: Ondansetron 4 MG/2 ML VIAL IVP PRN (21:37)
[2018-03-27] MEDS ORDERED: Nitroglycerin 0.4 MG TAB.SUBL SL PRN (21:37)
[2018-03-28] MEDS: *HR* OxyCODONE/APAP 5/325 TABLET PO PRN ×2 (00:42→08:09)
[2018-03-28] MEDS ORDERED: *HR* Enoxaparin 40 MG/0.4 ML SYRINGE SQ SCH (06:00)
[2018-03-28] MEDS: Nicotine 21 MG PATCH.TD24 TD SCH ×2 (08:08→08:10)
[2018-03-28] MEDS ORDERED: Aspirin 81 MG TAB.CHEW PO SCH (09:00)
[2018-03-28] MEDS ORDERED: *HR* Ticagrelor 90 MG TABLET PO SCH (09:00)
[2018-03-28] MEDS ORDERED: Metoprolol XL (24 HR) Succ 25 MG TAB.ER.24H PO SCH (09:00)
--- NOTE | 2018-03-28 09:14 | Discharge Summary ---
- NOTES TO OUTPATIENT PROVIDER Notes to Outpatient Provider: Staged PCI of OM scheduled with Dr. Farrell on Monday, April 04. Office will call patient with instructions. Date of Encounter: 03/28/18 Time of Encounter: 08:30 - Discharge Diagnosis (1) STEMI (ST elevation myocardial infarction) Priority: Primary Status: Acute Comments: s/p successful PCI to pLAD; staged PCI to OM scheduled for next week. DAPT, statin, BB. EF 35-40%--Toprol XL and Lisinopril. Euvolemic upon exam. Qualifiers: Involved coronary artery: LAD coronary artery Qualified Code(s): I21.02 - ST elevation (STEMI) myocardial infarction involving left anterior descending coronary artery (2) Cardiac arrest Priority: Primary Status: Resolved (3) Tobacco dependence Priority: Secondary Status: Chronic Comments: Patient wishes to try Chantix--has worked in past. Denies suicidal ideation; discussed with Dr. Farrell will provide prescription. Side effects discussed at length, patient is agreeable to proceed. (4) Chronic pain Priority: Secondary Status: Chronic Comments: Resume home medications. Qualifiers: Chronic pain type: chronic pain syndrome Qualified Code(s): G89.4 - Chronic pain syndrome - Hospital Course Hospital course: Mr. Abdalla is a 62 year old male who presented to [facility] ED via EMS on 03/25/18 with cardiac arrest (required x2 defibrillation for Vfib) secondary to acute anteroseptal NH; he was emergently taken to the label fuser tender and is s/p successful PTCA/LAVINIA of occluded pLAD; existing OM disease--staged PCI to be completed in the outpatient setting. TTE demonstrated mild reduction in LVEF, 35-40%. Patient did experience pleuritic pain, likely secondary to defibrillation, now resolved. Non-complicated hospital course; remained in ICU due to no-step down bed availability. Labs, vitals, and telemetry stable. No arrhythmias noted. He has been pain free for the past 24+ hours. Post LHC/PCI education discussed including importance of uninterrupted DAPT ( asa + brilinta) for a minimum of 1 year--30 day supply delivered to room prior to discharge. He is on appropriate medical therapy for CAD and CHF including asa , statin, BB, and ACEi. All questions and concerns were addressed prior to discharge Mr. Abdalla is being prepped for discharge to home in stable condition. Outpatient [facility] for staged PCI scheduled for next week. Patient was discussed and reviewed with Dr. Farrell who agrees with plan as stated above. Time spent discussing smoking cessation with patient: more than 10 minutes - Time Spent with Patient Total time spent providing and/or coordinating discharge services: 45 minutes Greater than 30 minutes Specific discharge activities: No heavy lifiting >5 pounds. Avoid strenuous activity or exertion until after staged LHC next week. Please provide written copy of post C (radial) orders/restrictions to patient upon discharge. - Discharge Medications Prescriptions: Nitroglycerin 0.4 mg SL Q5MIN PRN #30 tab.subl PRN Reason: Chest Pain Aspirin 81 mg PO DAILY #30 tab.chew Lisinopril [Zestril] 5 mg PO DAILY #30 tablet Metoprolol XL (24 HR) Succ [Toprol Xl] 25 mg PO DAILY #30 tab.er.24h Rosuvastatin [Crestor] 40 mg PO HS #30 tablet Ticagrelor [Brilinta] 90 mg PO BID #60 tablet Varenicline Tartrate [Chantix Starting ] 1 each PO AD #1 dosepack Home Medications: HYDROcodone/Acet 5/325 mg [[place] 5-325 mg] 0.5 tab PO Q6H PRN 03/26/18 [History] Oxycodone HCl/Acetaminophen [Percocet 5-325 mg Tablet] 1 each PO Q6HR 03/26/18 [ History] Aspirin 81 mg PO DAILY #30 tab.chew 03/28/18 [Rx] Lisinopril [Zestril] 5 mg PO DAILY #30 tablet 03/28/18 [Rx] Metoprolol XL (24 HR) Succ [Toprol Xl] 25 mg PO DAILY #30 tab.er.24h 03/28/18 [ Rx] Nitroglycerin 0.4 mg SL Q5MIN PRN #30 tab.subl 03/28/18 [Rx] Rosuvastatin [Crestor] 40 mg PO HS #30 tablet 03/28/18 [Rx] Ticagrelor [Brilinta] 90 mg PO BID #60 tablet 03/28/18 [Rx] Varenicline Tartrate [Chantix Starting ] 1 each PO AD #1 dosepack 03/28 [Rx] Allergies/Adverse Reactions: 3 Allergy/AdvReac Type Severity Reaction Status Date / Time No Known Allergies Allergy Verified 03/25/18 16:01 Date of admission: 03/25/18 16:58 Primary care physician: PCP NONE Discharging clinician: Ana Payne Anticipated date of discharge: 03/28/18 Physical Examination Vital Signs, Last 4 Hours Temp 03/28/18 07:25 98.6 F General: Conversant, No Apparent Distress HEENT: Atraumatic, Normocephaly, Mucus Membranes Moist Cardiac: Reg Rate and Rhythm, Normal S1 and S2 Lungs: Normal Breath Sounds Neuro: Alert and responsive Abdomen: Soft Skin: No rashes noted on visualized skin Musculoskeletal: No Chest Wall Tenderness Extremities: No Edema, Normal Pulses - Patient Status Disposition: Home, Self-Care Condition: Good Functional capacity at discharge: independent ambulation Overall status at discharge: patient is progressing back to baseline - Discharge Instructions Follow Up With: NONE,PCP [Primary Care Provider] - Peter Farrell MD [Partnered Physician] - (1 week after staged LHC) Additional Instructions: RISK FACTORS: STOP SMOKING: If you smoke, STOP. Smoking or tobacco use significantly increases your risk of heart disease because nicotine causes the arteries to narrow or constrict. It also causes fats to stick to the artery. Your chances of having a heart attack are greatly increased if you continue to smoke. For more information, call the education line for smoking cessation 7-729-SRQVUHQ EAT A LOW FAT/CHOLESTEROL/SODIUM DIET: This diet may help reduce your chances of having a heart attack. LIFTING: With affected extremity: Avoid bending, pushing off and lifting more than 2 pounds for 24 hours The following 48 hours, avoid lifting anything more than 5 pounds Avoid strenuous activity or repetitive motions ACTIVITY: You may walk or climb stairs as tolerated You can resume sexual activity as tolerated In general, you are encouraged to engage in a minimum of 30 minutes or more of moderate intensity physical activity, such as brisk walking, daily or at least 3 -4 times weekly BATHING Do not submerge the site into water (bath tub, hot tub, swimming pool, dishes) for 1 week. This can be a source for infection into the blood stream. You may shower after 24 hours SITE CARE: After 24 hours, you may remove the dressing and leave the site open to air. Keep the site clean and dry. Clean gently and pat dry. You can expect bruising and tenderness that gradually resolve within a week or two. Return to work as instructed per your physician Resume driving as instructed per physician Keep all scheduled follow up appointments Resume medications as instructed IMPORTANT: If prescribed a Platelet Aggregation Inhibitor such as, Plavix, Brilinta or Effient: Duration of therapy is minimum one year These medications are often used in combination with Aspirin in prevention of future heart attacks Never discontinue unless consult with your Head Refrigerating Engineer STROKE (CVA) Risk factors for a stroke are: Age, cigarette smoking, diabetes, excessive alcohol consumption, family history, high blood pressure, overweight, physical inactivity, prior stroke, heart attack, diagnosis of carotid artery stenosis or other artery disease. Warning signs: Sudden numbness or weakness of the face, arm or leg; especially on one side of the body, sudden confusion, trouble speaking or understanding, sudden trouble seeing in one or both eyes, sudden trouble walking, dizziness, loss of balance or coordination, sudden severe headache with no cause. Call 911 or go to the Emergency Room. CONGESTIVE HEART FAILURE: If you have been diagnosed with Congestive Heart Failure (CHF) and your symptoms return, make an appointment with your physician Weigh yourself daily. Notify your physician if you have a weight gain of two or more pounds in one day or five or more pounds in one week. If you experience any difficulty breathing, please call 911 BLEEDING: Although the risk of bleeding is minimal, it can happen. If you have any bleeding from the site, apply firm pressure above the puncture site for 10-15 minutes. If the bleeding does not stop, continue manual pressure and call 911 Contact [facility] ( ) if: You develop a fever greater than 101 degrees Fahrenheit Your site becomes reddened or has any drainage You have an increase in pain or burning at the site or if a large knot forms at the site. If you experience chest pain, shortness of breath, dizziness, or extreme tiredness, stop the activity and rest. Please notify [facility] office if you experience any of these symptoms and they are not relieved by rest please call 911! - Diet and Activity Activity: return to work once cleared by your PCP/specialist, other (avoid strenuous activity or heavy exertion until cleared by Cardiology) Diet: low fat, low cholesterol, low salt diet
[2018-03-28 13:24] VITALS: BP 121/70
== END 2018-03-28 13:10 | disposition home or self-care (01) | DRG 246 ==
LOC: ICNU 15:49 → EMEROO 15:49 → ICNU 16:05
PROVIDERS: ADMIT Emergency Medicine; ATTEND Emergency Medicine

== ENCOUNTER 2018-03-31 13:46 | Inpatient (IN) ==
[2018-03-31 14:33] LABS: Basophils # 0.1 K/mcL (0.0-0.2); Basophils % 0.4 %; Eosinophils # 0.2 K/mcL (0.0-0.6); Eosinophils % 1.5 %; Hematocrit 40.3 % (37.5-50.1); Hemoglobin 14.1 g/dL (12.9-16.9); Immature Granulocytes % 0.3 % (0-4); Lymphocytes % 25.1 %; Mean Corpuscular Hemoglobin 30.3 pg (28.0-33.3); Mean Corpuscular Volume 86.7 fL (83.0-100.0); Mean Platelet Volume 10.2 fL (9.4-12.4); Monocytes # 0.9 K/mcL (0.0-1.3); Monocytes % 7.8 %; Neutrophils # 7.6 K/mcL (1.6-8.9); Platelet Count 232 K/mcL (140-400); Red Blood Count 4.65 M/mcL (4.19-5.50); Red Cell Distribution Width 13.5 % (11.5-14.5); Segmented Neutrophils % 64.9 %
[2018-03-31 14:38] LABS: Prothrombin Time 10.9 Seconds (9.4-12.1)
[2018-03-31 15:00] LABS: BUN/Creatinine Ratio 12 (6-26); Blood Urea Nitrogen 11 mg/dL (8-23); Calcium 9.3 mg/dL (8.6-10.3); Carbon Dioxide 26 mEq/L (23-29); Chloride 106 mEq/L (98-107); Glucose 107 mg/dL (70-105); Osmolality,Calculated 286 (280-300); Potassium 4.1 mEq/L (3.5-5.1); Sodium 138 mEq/L (136-145); eGFR For African Americans > 60 (> 60); eGFR For Non-African Americans > 60 (> 60)
[2018-03-31 15:03] LABS: Troponin I 1.15 ng/mL (< 0.04)
--- NOTE | 2018-03-31 15:03 | Emergency Department Note ---
Disposition Clinical Impression: Lightheadedness, Elevated troponin Disposition: Admitted As Inpatient Condition: Fair Referrals: Stacy Bernard CNP [Primary Care Provider] - Forms: ED Satisfaction Letter Chest Pain HPI - General Chief Complaint: ED Chest Pain Stated Complaint: Chest pain Time Seen by Provider: 03/31/18 13:57 Source: patient, EMS Limitations: no limitations - History of Present Illness HPI Narrative: Mr. Abdalla is a 62-year-old gentleman who was admitted 6 days ago for cardiac arrest requiring defib x2 to achieve ROSC. He underwent LHC after anterior [place] one stent placed, he was discharged 03/28 on Brilinta with 2nd stent placement scheduled as outpt on 04/04. He presents by EMS from urgent care. Last night he states he started thinking about his upcoming heart cath then became very anxious and was unable to sleep last night and he felt lightheaded. This morning he continued to have some lightheadedness and felt "not right," pt's was concerned and suggested going to urgent care. Denies chest pain, heart palpitations, shortness of breath, headache, nausea/vomiting, abdominal pain, diaphoresis; upper extremity, neck, or jaw pain. Time: 14:28 Severity scale (1-10): 0 - Related Data Home Medications Medication Instructions Recorded Confirmed Aspirin [Lo-Dose Aspirin EC] 81 mg PO DAILY 03/31/18 03/31/18 HYDROcodone/Acet 10/325 mg [[place] 1 tab PO Q6H PRN 03/31/18 03/31/18 10-325 mg] Lisinopril [Zestril] 5 mg PO DAILY 03/31/18 03/31/18 Metoprolol Succinate [Toprol Xl] 25 mg PO DAILY 03/31/18 03/31/18 Nitroglycerin [Nitrostat] 0.4 mg PO Q5M PRN 03/31/18 03/31/18 Oxycodone HCl [Oxycodone HCl] 5 mg PO Q6H PRN 03/31/18 03/31/18 Rosuvastatin Calcium [Rosuvastatin 40 mg PO HS 03/31/18 03/31/18 Calcium] Ticagrelor [Brilinta] 90 mg PO BID 03/31/18 03/31/18 Varenicline Tartrate [Chantix 1 tab PO PER PKG DI 03/31/18 03/31/18 Starting Month FREDDY] Allergies Allergy/AdvReac Type Severity Reaction Status Date / Time No Known Allergies Allergy Verified 03/31/18 16:18 Review of Systems: As Per HPI Chest Pain PMH - Past Medical History Medical history: Reports: myocardial infarction Psychiatric history: Reports: no psych history - Social History Smoking Status: Current every day smoker Alcohol use: Reports: none Drug use: Reports: none Physical Exam - General Limitations: no limitations General appearance: alert, in no apparent distress - Head Head exam: normocephalic, normal inspection - Eye Eye exam: Present: normal appearance, PERRL - Neck Neck exam: Present: full ROM - Chest Chest inspection: Present: symmetric chest wall rise - Respiratory Respiratory exam: Present: normal lung sounds bilaterally. Absent: respiratory distress, wheezes - Cardiovascular Cardiovascular exam: Present: regular rate, normal rhythm, normal heart sounds. Absent: systolic murmur, diastolic murmur - Abdominal Exam Abdominal exam: Present: soft, Non-Tender - Extremities Exam Extremities exam: Present: normal inspection. Absent: pedal edema, calf tenderness - Back Exam Back exam: Present: normal inspection - Neurological Exam Neurological exam: Present: alert, oriented X3, other (moves all extremities spontaneously). Absent: motor sensory deficit - Skin Skin exam: Present: warm, dry, intact. Absent: diaphoresis Course Vital Signs Temperature 97.2 F L 03/31/18 13:47 Pulse Rate 65 03/31/18 13:47 Respiratory Rate 14 03/31/18 13:47 Blood Pressure 155/88 03/31/18 13:47 O2 Sat by Pulse Oximetry 99 03/31/18 13:47 Temperature 98.2 F 03/31/18 19:24 Pulse Rate 66 03/31/18 19:24 Respiratory Rate 16 03/31/18 19:24 Blood Pressure 136/77 03/31/18 19:24 O2 Sat by Pulse Oximetry 97 03/31/18 19:24 Oxygen Delivery Oxygen Delivery Room Air Chest Pain - MDM Narrative Medical decision making narrative: Mr. Abdalla is a 62-year-old gentleman admitted 6 days ago for cardiac arrest with defib x2 to achieve ROSC; underwent LHC for stent x1. Discharged on Brilinta, 2nd stent placement scheduled as outpt on 04/04. Vital signs stable on arrival. Pt was given 324 mg chewable ASA. EKG showed no acute ischemic changes and was unchanged from previous EKG. Labs show leukocytosis, electrolyte WNL, troponin 1.15. CXR stable from 03/25/18 and no new cardiopulmonary findings. Troponin 1.19 on repeat. While in the department, he endorsed no chest pain, heart palpitations, shortness of breath, headache, nausea/vomiting, abdominal pain, diaphoresis; upper extremity, neck, or jaw pain. HEART score 7 is high- risk. Pt admitted to hospitalist team for further management, pt agreed to this plan. - Medical Records Medical records reviewed: Yes I reviewed the patient's medical records. - Lab Data Lab results reviewed: Yes I reviewed the patient's lab results. Result diagrams: 03/31/18 20:49 03/31/18 14:24 Lab Results 03/31/18 03/31/18 03/31/18 Range/Units 14:24 14:24 14:24 WBC 11.7 H (4.3-11.1) K/mcL RBC 4.65 (4.19-5.50) M/mcL Hgb 14.1 (12.9-16.9) g/dL Hct 40.3 (37.5-50.1) % MCV 86.7 (83.0-100.0) fL MCH 30.3 (28.0-33.3) pg MCHC 35.0 (31.6-35.5) g/dL RDW 13.5 (11.5-14.5) % Plt Count 232 (140-400) K/mcL MPV 10.2 (9.4-12.4) fL Immature Gran % 0.3 (0-4) % Seg Neutrophils % 64.9 % Lymphocytes % 25.1 % Monocytes % 7.8 % Eosinophils % 1.5 % Basophils % 0.4 % Neutrophils # 7.6 (1.6-8.9) K/mcL Lymphocytes # 3.0 (0.6-4.6) K/mcL Monocytes # 0.9 (0.0-1.3) K/mcL Eosinophils # 0.2 (0.0-0.6) K/mcL Basophils # 0.1 (0.0-0.2) K/mcL PT 10.9 (9.4-12.1) Seconds INR 1.0 APTT 30.0 (26.0-36.0) Seconds Sodium 138 (136-145) mEq/L Potassium 4.1 (3.5-5.1) mEq/L Chloride 106 (98-107) mEq/L Carbon Dioxide 26 (23-29) mEq/L BUN 11 (8-23) mg/dL Creatinine 0.89 (0.70-1.30) mg/dL Est GFR ( Amer) > 60 (> 60) Est GFR (Non-Af Amer) > 60 (> 60) BUN/Creatinine Ratio 12 (6-26) Glucose 107 H (70-105) mg/dL Calculated Osmolality 286 (280-300) Calcium 9.3 (8.6-10.3) mg/dL Troponin I 1.15 H* (< 0.04) ng/mL 03/31/18 03/31/18 03/31/18 Range/Units 20:49 20:49 20:49 WBC 12.6 H (4.3-11.1) K/mcL RBC 4.81 (4.19-5.50) M/mcL Hgb 14.1 (12.9-16.9) g/dL Hct 41.5 (37.5-50.1) % MCV 86.3 (83.0-100.0) fL MCH 29.3 (28.0-33.3) pg MCHC 34.0 (31.6-35.5) g/dL RDW 13.4 (11.5-14.5) % Plt Count 240 (140-400) K/mcL MPV 10.3 (9.4-12.4) fL Immature Gran % (0-4) % Seg Neutrophils % % Lymphocytes % % Monocytes % % Eosinophils % % Basophils % % Neutrophils # (1.6-8.9) K/mcL Lymphocytes # (0.6-4.6) K/mcL Monocytes # (0.0-1.3) K/mcL Eosinophils # (0.0-0.6) K/mcL Basophils # (0.0-0.2) K/mcL PT 11.4 (9.4-12.1) Seconds INR 1.1 APTT 29.2 (26.0-36.0) Seconds Sodium (136-145) mEq/L Potassium (3.5-5.1) mEq/L Chloride (98-107) mEq/L Carbon Dioxide (23-29) mEq/L BUN (8-23) mg/dL Creatinine (0.70-1.30) mg/dL Est GFR ( Amer) (> 60) Est GFR (Non-Af Amer) (> 60) BUN/Creatinine Ratio (6-26) Glucose (70-105) mg/dL Calculated Osmolality (280-300) Calcium (8.6-10.3) mg/dL Troponin I 1.19 H* (< 0.04) ng/mL - Radiology Data Radiology results reviewed: Yes I reviewed the patient's radiology results. - EKG Data EKG shows normal: sinus rhythm, QRS complexes, ST-T waves (no elevations or depressions) Rate: normal Interpretation: no acute changes
[2018-03-31] MEDS ORDERED: Aspirin 81 MG TAB.CHEW PO STA (15:17)
--- NOTE | 2018-03-31 18:30 | Emergency Department Note ---
Disposition Clinical Impression: Lightheadedness, Elevated troponin Disposition: Admitted As Inpatient Condition: Fair Referrals: Stacy Bernard CNP [Primary Care Provider] - Chest Pain HPI - General Chief Complaint: ED Chest Pain Stated Complaint: Chest pain Time Seen by Provider: 03/31/18 13:57 Source: patient, EMS Limitations: no limitations Vital Signs Reviewed: Yes Nursing Notes Reviewed: Yes - History of Present Illness Severity scale (1-10): 0 - Related Data Home Medications Medication Instructions Recorded Confirmed Aspirin [Lo-Dose Aspirin EC] 81 mg PO DAILY 03/31/18 03/31/18 HYDROcodone/Acet 10/325 mg [[place] 1 tab PO Q6H PRN 03/31/18 03/31/18 10-325 mg] Lisinopril [Zestril] 5 mg PO DAILY 03/31/18 03/31/18 Metoprolol Succinate [Toprol Xl] 25 mg PO DAILY 03/31/18 03/31/18 Nitroglycerin [Nitrostat] 0.4 mg PO Q5M PRN 03/31/18 03/31/18 Oxycodone HCl [Oxycodone HCl] 5 mg PO Q6H PRN 03/31/18 03/31/18 Rosuvastatin Calcium [Rosuvastatin 40 mg PO HS 03/31/18 03/31/18 Calcium] Ticagrelor [Brilinta] 90 mg PO BID 03/31/18 03/31/18 Varenicline Tartrate [Chantix 1 tab PO PER PKG DI 03/31/18 03/31/18 Starting Month FREDDY] Allergies Allergy/AdvReac Type Severity Reaction Status Date / Time No Known Allergies Allergy Verified 03/31/18 16:18 Chest Pain PMH - Past Medical History Medical history: Reports: myocardial infarction Psychiatric history: Reports: no psych history - Social History Smoking Status: Current every day smoker Alcohol use: Reports: none Drug use: Reports: none Physical Exam - General Limitations: no limitations General appearance: alert, in no apparent distress Course Vital Signs Temperature 97.2 F L 03/31/18 13:47 Pulse Rate 65 03/31/18 13:47 Respiratory Rate 14 03/31/18 13:47 Blood Pressure 155/88 03/31/18 13:47 O2 Sat by Pulse Oximetry 99 03/31/18 13:47 Temperature 98.1 F 03/31/18 17:34 Pulse Rate 60 03/31/18 17:34 Respiratory Rate 18 03/31/18 17:34 Blood Pressure 114/69 03/31/18 17:34 O2 Sat by Pulse Oximetry 98 03/31/18 17:34 Oxygen Delivery Oxygen Delivery Room Air Chest Pain - Lab Data Result diagrams: 03/31/18 14:24 03/31/18 14:24 Lab Results 03/31/18 03/31/18 03/31/18 Range/Units 14:24 14:24 14:24 WBC 11.7 H (4.3-11.1) K/mcL RBC 4.65 (4.19-5.50) M/mcL Hgb 14.1 (12.9-16.9) g/dL Hct 40.3 (37.5-50.1) % MCV 86.7 (83.0-100.0) fL MCH 30.3 (28.0-33.3) pg MCHC 35.0 (31.6-35.5) g/dL RDW 13.5 (11.5-14.5) % Plt Count 232 (140-400) K/mcL MPV 10.2 (9.4-12.4) fL Immature Gran % 0.3 (0-4) % Seg Neutrophils % 64.9 % Lymphocytes % 25.1 % Monocytes % 7.8 % Eosinophils % 1.5 % Basophils % 0.4 % Neutrophils # 7.6 (1.6-8.9) K/mcL Lymphocytes # 3.0 (0.6-4.6) K/mcL Monocytes # 0.9 (0.0-1.3) K/mcL Eosinophils # 0.2 (0.0-0.6) K/mcL Basophils # 0.1 (0.0-0.2) K/mcL PT 10.9 (9.4-12.1) Seconds INR 1.0 APTT 30.0 (26.0-36.0) Seconds Sodium 138 (136-145) mEq/L Potassium 4.1 (3.5-5.1) mEq/L Chloride 106 (98-107) mEq/L Carbon Dioxide 26 (23-29) mEq/L BUN 11 (8-23) mg/dL Creatinine 0.89 (0.70-1.30) mg/dL Est GFR ( Amer) > 60 (> 60) Est GFR (Non-Af Amer) > 60 (> 60) BUN/Creatinine Ratio 12 (6-26) Glucose 107 H (70-105) mg/dL Calculated Osmolality 286 (280-300) Calcium 9.3 (8.6-10.3) mg/dL Troponin I 1.15 H* (< 0.04) ng/mL Attestation Statement - Attestation Attestation: I, Manuel Dimas, examined this patient and my medical decision-making was reviewed with the DIRECTOR OF NURSING/PA/Advanced Practice Nurse/Resident Physician. I agree with the documented findings, disposition and treatment plan as described except to the extent set forth below. 62 yo male presents with concerns of lightheadedness and weakness prior to arrival. Pt has history of recent STEMI requiring defibrillation. He had one stent placed during that visit and has plan for a second stent to be placed within the next 4 days. Patient states he had an episode of lightheadedness prior to arrival he feels it may be due to anxiety however due to his recent hospitalization he wanted evaluation. He initially presented to an urgent care who sent him to the emergency department for further evaluation. Patient denies chest pain or lightheadedness or other near syncopal symptoms in the emergency department. He states his symptoms lasted for a few minutes prior to resolving without intervention. He is faithfully taking his medications that were prescribed upon discharge. Patient has EKG that showed normal sinus rhythm with a rate of 63 without evidence of STEMI or arrhythmia. Initial troponin was elevated at 1.15 however he does not have chest pain emergency Department. Patient likely has residual elevated troponin from his STEMI. Patient will be admitted to hospitalist for further care and evaluation. He is given aspirin in the emergency department however he will not be started on heparin at this time as he does not have chest pain.
[2018-03-31] MEDS ORDERED: *HR* Heparin 5,000 UNIT/ML VIAL IVP ONE (20:19)
[2018-03-31] MEDS ORDERED: Naloxone 0.4 MG/ML INJ IVP PRN (20:19)
[2018-03-31] MEDS ORDERED: Nitroglycerin 0.4 MG TAB.SUBL SL PRN (20:19)
[2018-03-31] MEDS ORDERED: Acetaminophen 325 MG TABLET PO PRN (20:19)
[2018-03-31] MEDS ORDERED: *HR* Heparin 5,000 UNIT/ML VIAL IVP PRN ×2 (20:19)
[2018-03-31] MEDS ORDERED: *HR* Morphine 2 MG/ML SYRINGE IVP PRN (20:26)
[2018-03-31] MEDS ORDERED: Heparin 25,000 UNIT/500 ML D5W 25,000 UNIT/500 ML BAG IVC SCH (20:30)
--- NOTE | 2018-03-31 20:46 | Internal Med History&Physical ---
Date of Encounter: 03/31/18 Time of Encounter: 19:25 Internal Medicine - H&P: HPI Chief complaint: lightheadedness, dizziness, recent STEMI Admitted From: Emergency Dept Plans for Post Hospital Care: Home History of present illness: Mr. Abdalla is a 62 year old male who presents to the ER today with about a 12 hour history of anxiety, lightheadedness, dizziness, and vague and rare chest tightness. He presented to the urgent care and was transferred to the ER right away given his EKG findings. In the ER, he was given an aspirin and admitted to hospitalist service. Of note, his troponin was elevated at 1.15 and his last troponin level was less than 0.03 last week. Hospitalist service requested the ER contact cardiology, but they did not consult cardiology given the absence of chest pain. I saw patient on the floor and discussed with patient and his daughter at length his symptoms. He denies any chest pain or heaviness. He did have some atypical chest tightness earlier today but none since then. He did have a STEMI 6 days ago and he had significant chest pain and pressure then which was much different than today's presentation. However, he did have the same type presentation with lightheadedness, dizziness, and anxiety as he did last week. Last week, he suffered a V-FIB arrest en route and had to be cardioverted twice by EMS. He is obviously a little anxious and nervous and does not want to have a near experiences as he did 6 days ago. I reviewed his EKG and I'm a little concerned for some ischemic changes. Despite absence of chest pain, I am quite concerned about his presenting history, EKG findings, and troponin elevation. I therefore am transferring him down to 2N Cardiac Stepdown unit and initiating him on heparin drip and treating him as a non-STEMI. I also personally called Dr. Farrell and asked him to review the EKGs. I am consulting him for further cardiac intervention as necessary. Of note, patient had successful PTCA and stent of his LAD last week and is due to have elective left heart catherization with PCI later this week for 90% lesion in his circumflex artery. His ECHO revealed ischemic cardiomyopathy with an EF of 35-40%. I discussed this with the patient, his daughter, and by telephone with Dr. Farrell. We will treat him conservatively for non-STEMI and watch him closely in 2 N with cardiology consultation. All were in agreement with the plan of care. Past Med Surg Social Fam HX - Past Medical History Attestation: Yes The following information was validated with the patient. Source: patient, old records reviewed Medical history: cardiomyopathy, coronary artery disease, myocardial infarction Psychiatric history: no psych history - Past Surgical History Surgical History: angioplasty/stent - Social History Smoking Status: Current every day smoker Packs per day: 1 Smokeless Tobacco Status: No Alcohol use: none Drug use: none Current living situation: Home, With Family Activity Level: Independent ambulation Recent Out of Country Travel Within the Last 8 Weeks: No - Family History Father Family Member Ethnicity: Unknown Living Status: Hx Family Cardiac Disorders: Yes Internal Medicine - H&P: Meds Aspirin [Lo-Dose Aspirin EC] 81 mg PO DAILY 03/31/18 [History] HYDROcodone/Acet 10/325 mg [[place] 10-325 mg] 1 tab PO Q6H PRN 03/31/18 [History] Lisinopril [Zestril] 5 mg PO DAILY 03/31/18 [History] Metoprolol Succinate [Toprol Xl] 25 mg PO DAILY 03/31/18 [History] Nitroglycerin [Nitrostat] 0.4 mg PO Q5M PRN 03/31/18 [History] Oxycodone HCl [Oxycodone HCl] 5 mg PO Q6H PRN 03/31/18 [History] Rosuvastatin Calcium [Rosuvastatin Calcium] 40 mg PO HS 03/31/18 [History] Ticagrelor [Brilinta] 90 mg PO BID 03/31/18 [History] Varenicline Tartrate [Chantix Starting Month FREDDY] 1 tab PO PER PKG DI 03/31/18 [ History] 3 Allergy/AdvReac Type Severity Reaction Status Date / Time No Known Allergies Allergy Verified 03/31/18 16:18 - Constitutional Constitutional: no chills, no fever(s) - EENT Eyes: no blurry vision, no change in vision Ears: no ear pain, no tinnitus Nose, mouth and throat: no nasal congestion, no sinus pressure, no sore throat - Cardiovascular Cardiovascular ROS IM: chest pain (once earlier today/AM), diaphoresis, lightheadedness, palpitations, no dyspnea, no dyspnea on exertion, no paroxysmal nocturnal dyspnea, no syncope - Respiratory Respiratory: no cough, no dyspnea, no dyspnea on exertion, no wheezing, no pain on inspiration, no chest congestion, no excessive phlegm production, no change in phlegm color - Gastrointestinal Gastrointestinal: no abdominal pain, no diarrhea, no hematemesis, no hematochezia, no melena, no nausea, no vomiting - Genitourinary Genitourinary ROS male: no dysuria, no flank pain, no hematuria - Musculoskeletal Musculoskeletal ROS IM: no arthralgias, no back pain - Integumentary Integumentary IM: no rash, no jaundice - Neurological Neurological ROS: dizziness, no focal weakness, no frequent falls, no headache(s ), no vertigo, no weakness - Psychiatric Psychiatric: anxiety, no depression - Endocrine Endocrine IM: no polydipsia, no polyuria - Hematologic/Lymphatic Hematologic/Lymphatic: no easy bruising, no lymphadenopathy - Allergic/Immunologic Allergic/Immunologic: no wheezing, no GI upset with certain foods - Constitutional Vitals: Temp Pulse Resp BP Pulse Ox 98.2 F 66 16 136/77 97 03/31/18 19:24 03/31/18 19:24 03/31/18 19:24 03/31/18 19:24 03/31/18 19:24 General appearance: Present: cooperative, mild distress (anxious), A&O X 3, pleasant, answers questions appropriately - Head Head exam: Present: atraumatic, normal inspection - Eye Eye exam: Present: EOMI, normal appearance, PERRL. Absent: scleral icterus Pupils: Present: normal accommodation - ENT ENT exam: Present: mucous membranes dry, normal exam, normal oropharynx - Neck Neck exam general surgery: Present: full ROM, supple. Absent: tenderness, nuchal rigidity, thyromegaly - Expanded Neck Exam Neck exam: Absent: carotid bruit - Respiratory Respiratory exam: Present: CTAB. Absent: chest wall tenderness, rales, respiratory distress, rhonchi, wheezes - Cardiovascular Cardiovascular exam: Present: RRR, +S1, +S2. Absent: diastolic murmur, JVD, systolic murmur - GI/Abdominal GI/Abdominal exam: Present: soft. Absent: guarding, hepatomegaly, mass, rebound , splenomegaly, tenderness - Extremities Exam Extremities exam: Present: full ROM, normal capillary refill, warm, radial pulses palpable and symmetrical. Absent: calf tenderness, joint swelling, pedal edema, tenderness - Back Exam Back exam: Present: normal inspection. Absent: CVA tenderness (L), CVA tenderness (R) - Neurological Exam Neurological exam: Present: alert, CN II-XII intact, oriented X3, no focal deficits - Psychiatric Psychiatric exam: Present: anxious. Absent: depressed - Skin Skin exam: Present: dry, warm. Absent: rash Internal Med - H&P Results - Labs CBC & Chem 7: 03/31/18 14:24 03/31/18 14:24 - EKG Data -: EKG Interpreted by Myself - EKG Data Prior EKG available for review: yes EKG comments: 03/31/18 20:55 NSR; recent anterior AK with Q waves - Diagnostic Studies Chest x-ray Status: image reviewed by me (negative) - VTE Reasons for not Prescribing Prophylaxis: Not indicated-Anticoagulated or INR therapeutic - Assessment and plan (1) NSTEMI (non-ST elevated myocardial infarction) Current Visit: Yes Status: Acute Assessment and plan: 1. Patient transferred to . 2. Heparin gtt, ASA, Brilinta, and home cardiac meds. 3. Will order SL NTG PRN and PRN IV Morphine. 4. Consult and discussed with Dr. Farrell. 5. Trend Troponins and EKG's. 6. Order limited ECHO to assess LVEF. (2) Near syncope Current Visit: Yes Status: Acute Assessment and plan: 1. Patient complains of lightheadedness and dizziness. 2. Monitor on telemetry and vitals closely. 3. ECHO and cardiac work-up as above. 4. May need further neurovascular work-up once NSTEMI issues resolve. (3) Tobacco dependence Current Visit: Yes Status: Chronic Assessment and plan: 1. Patient on Chantix, still actively smoking. 2. Smoking cessation advised. (4) DVT prophylaxis Current Visit: Yes Status: Acute Assessment and plan: 1. Heparin gtt as above.
[2018-03-31] MEDS: *HR* HYDROcodone/Acet 10/325 mg TABLET PO PRN (21:13)
[2018-03-31] MEDS: *HR* Ticagrelor 90 MG TABLET PO SCH (21:14)
[2018-03-31 21:18] LABS: Hematocrit 41.5 % (37.5-50.1); Hemoglobin 14.1 g/dL (12.9-16.9); Mean Corpuscular Hemoglobin 29.3 pg (28.0-33.3); Mean Corpuscular Volume 86.3 fL (83.0-100.0); Mean Platelet Volume 10.3 fL (9.4-12.4); Platelet Count 240 K/mcL (140-400); Red Blood Count 4.81 M/mcL (4.19-5.50); Red Cell Distribution Width 13.4 % (11.5-14.5)
[2018-03-31 21:24] LABS: INR 1.1; Prothrombin Time 11.4 Seconds (9.4-12.1)
[2018-03-31 21:26] LABS: Activated Partial Thrombo Time 29.2 Seconds (26.0-36.0)
[2018-04-01] MEDS: *HR* HYDROcodone/Acet 10/325 mg TABLET PO PRN (03:22)
[2018-04-01 03:34] LABS: Basophils # 0.1 K/mcL (0.0-0.2); Basophils % 0.5 %; Eosinophils # 0.3 K/mcL (0.0-0.6); Eosinophils % 2.2 %; Hematocrit 39.3 % (37.5-50.1); Hemoglobin 13.2 g/dL (12.9-16.9); Immature Granulocytes % 0.2 % (0-4); Lymphocytes # 4.8 K/mcL (0.6-4.6); Lymphocytes % 39.8 %; Mean Corpuscular HGB Conc 33.6 g/dL (31.6-35.5); Mean Corpuscular Hemoglobin 29.2 pg (28.0-33.3); Mean Corpuscular Volume 86.9 fL (83.0-100.0); Mean Platelet Volume 10.3 fL (9.4-12.4); Monocytes # 0.9 K/mcL (0.0-1.3); Monocytes % 7.8 %; Neutrophils # 5.9 K/mcL (1.6-8.9); Platelet Count 229 K/mcL (140-400); Red Blood Count 4.52 M/mcL (4.19-5.50); Red Cell Distribution Width 13.7 % (11.5-14.5); Segmented Neutrophils % 49.5 %
[2018-04-01 03:40] LABS: INR 1.1; Prothrombin Time 11.4 Seconds (9.4-12.1)
[2018-04-01 03:56] LABS: Alanine Aminotransferase 28 Units/L (7-52); Albumin 3.6 g/dL (3.5-5.7); Albumin/Globulin Ratio 1.4 (1.1-2.2); Alkaline Phosphatase 60 Units/L (34-104); Aspartate Amino Transferase 13 Units/L (13-39); BUN/Creatinine Ratio 17 (6-26); Bilirubin,Total 0.3 mg/dL (0.3-1.0); Blood Urea Nitrogen 14 mg/dL (8-23); Calcium 9.1 mg/dL (8.6-10.3); Carbon Dioxide 26 mEq/L (23-29); Chloride 107 mEq/L (98-107); Chol/HDL Ratio 3.2 (0-4.9); Cholesterol 110 mg/dL (< 200); Globulin 2.5 g/dL (2.4-3.5); Glucose 108 mg/dL (70-105); HDL Cholesterol 34 mg/dL (40-59); LDL Cholesterol,Calculated 44 mg/dL (0-99); Magnesium 1.9 mg/dL (1.6-2.6); Osmolality,Calculated 289 (280-300); Potassium 4.1 mEq/L (3.5-5.1); Sodium 139 mEq/L (136-145); Total Protein 6.1 g/dL (6.4-8.9); Triglycerides 160 mg/dL (< 150); eGFR For African Americans > 60 (> 60); eGFR For Non-African Americans > 60 (> 60)
[2018-04-01] MEDS ORDERED: *HR* OxyCODONE Immed Rel 5 MG TABLET PO PRN (04:05)
[2018-04-01] MEDS: *HR* Ticagrelor 90 MG TABLET PO SCH (08:45)
[2018-04-01] MEDS: Metoprolol XL (24 HR) Succ 25 MG TAB.ER.24H PO SCH ×2 (08:52→10:39)
[2018-04-01] MEDS ORDERED: Aspirin Enteric Coated 81 MG Tablet PO SCH (09:00)
--- NOTE | 2018-04-01 09:07 | Internal Med Progress Note ---
Date of Encounter: 04/01/18 Time of Encounter: 08:30 - Assessment and plan (1) NSTEMI (non-ST elevated myocardial infarction) Current Visit: Yes Status: Acute Assessment and plan: Patient reports near syncope from anxiety prompted visit to urgent care Patient reports being chest pain-free Patient had V. fib arrest with stent placed the LAD last week Plan for staged PCI to the OM this week Troponin peaked at 1.19 since been downtrending Last echo on 03/26/18 showed EF 35-40% with moderate segmental left ventricular systolic dysfunction Heparin gtt, ASA, Brilinta, and home cardiac meds Will order SL NTG PRN and PRN IV Morphine Cardiology is consulted and appreciate recommendations for continued management/ care Discuss with cardiology and patient is safe for discharge and follow-up for scheduled PCI on Monday Order limited ECHO to assess LVEF. (2) Near syncope Current Visit: Yes Status: Acute Assessment and plan: Patient reported of lightheadedness and dizziness due to anxiety Recent V. fib arrest and cardiac catheter with stent placement Patient troponins peaked at 1.19 and have been trending down Monitor on telemetry and vitals closely Limited echocardiogram ordered May need further neurovascular work-up once NSTEMI issues resolve Patient previously planned for staged PCI to OM this week (3) Tobacco dependence Current Visit: Yes Status: Chronic Assessment and plan: Patient on Chantix, still actively smoking Smoking cessation advised (4) DVT prophylaxis Current Visit: Yes Status: Acute Assessment and plan: Heparin gtt as above - Time Spent With Patient Total time spent is greater than 50% in coordination of care (as documented) at patient's floor/unit and/or counseling patient: - Subjective Interval history: Patient reports that he is doing well this morning. He denies having any chest pain, tightness, or discomfort (he states he never did). He had originally gone to the urgent care because he felt anxious. As of this morning he has no concerns/complaints denies shortness of breath, fever/chills, nausea/vomiting. He does report having a fairly dry mouth because he has been nothing by mouth as well as pain in his lower back that is chronic. 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 - Constitutional Vitals: Temp Pulse Resp BP Pulse Ox 98.5 F 57 20 109/57 95 04/01/18 07:09 04/01/18 07:09 04/01/18 07:09 04/01/18 07:09 04/01/18 07:09 General appearance: Present: cooperative, A&O X 3, pleasant, no acute distress, answers questions appropriately Exam: General: Cooperative, pleasant, no acute distress, alert and oriented 3, answers questions appropriately HEENT: Normocephalic, atraumatic, Conjunctiva pink, sclera anicteric,oral mucosa dry, no orophargeal erythema or exudates Respiratory: No accessory muscle usage, clear to auscultation bilaterally, no wheezes/rhonchi/rales appreciated Cardiovascular: Regular rate and rhythm, S1 and S2 present, no murmurs/rubs/ gallops/clicks appreciated GI/abdominal: Nondistended, nontender, soft, normal bowel sounds, no peritoneal signs Extremities: No calf tenderness, no pedal edema appreciated, warm, lower extremity pulses palpable and symmetrical Neurological: Alert and oriented 3, no facial droop, no focal deficits Skin: Dry, intact, normal color Internal Medicine: Result - Labs CBC & Chem 7: 04/01/18 03:09 04/01/18 03:09 Labs: Short CBC 03/31/18 04/01/18 Range/Units 20:49 03:09 WBC 12.6 H 12.0 H (4.3-11.1) K/mcL Hgb 14.1 13.2 (12.9-16.9) g/dL Hct 41.5 39.3 (37.5-50.1) % Plt Count 240 229 (140-400) K/mcL Neutrophils # 5.9 (1.6-8.9) K/mcL BMP 04/01/18 03:09 Sodium 139 Potassium 4.1 Chloride 107 Carbon Dioxide 26 BUN 14 Creatinine 0.82 Glucose 108 H Calcium 9.1 Cardiac Enzymes 03/31/18 04/01/18 Range/Units 20:49 03:09 Troponin I 1.19 H* 1.01 H* (< 0.04) ng/mL Liver Function 04/01/18 Range/Units 03:09 Total Bilirubin 0.3 (0.3-1.0) mg/dL AST 13 (13-39) Units/L ALT 28 (7-52) Units/L Alkaline Phosphatase 60 (34-104) Units/L Albumin 3.6 (3.5-5.7) g/dL - ABG Interpretation ABG results: PT/INR, D-dimer PT 11.4 Seconds (9.4-12.1) 04/01/18 03:09 - VTE Reasons for not Prescribing Prophylaxis: Not indicated-Anticoagulated or INR therapeutic Consult Discharge Plan - Plan Referrals: Stacy Bernard, CHANTELLE [Primary Care Provider] -
--- NOTE | 2018-04-01 09:15 | Discharge Summary ---
<Javier Quinn - Last Filed: 04/01/18 11:51> - NOTES TO OUTPATIENT PROVIDER Notes to Outpatient Provider: Patient denies having had chest pain at any time and thinks that this visit was likely due to anxiety. He was seen by cardiology who felt that he was safe for discharge and that he would keep his previously schedule PCI for 04/04/18. Orders not resulted at time of discharge: Pending orders 04/01/18 09:30 PTT [Activated Partial Thrombo Time] [COAG] Timed Date of Encounter: 04/01/18 Time of Encounter: 08:30 - Discharge Diagnosis (1) NSTEMI (non-ST elevated myocardial infarction) Priority: Primary Status: Ruled-out (2) Near syncope Priority: Primary Status: Suspected (3) Tobacco dependence Priority: Primary Status: Chronic (4) DVT prophylaxis Priority: Secondary Status: Acute Hospital course: Mr. Abdalla is a 62 year old male with prior medical history of coronary artery disease and myocardial infarction with V. fib arrest 7 days ago presented to urgent care after having lightheadedness, dizziness, and excited. He had suffered V. fib arrest 7 days ago and had PCI with one stent in his LAD with plan for additional PCI on 04/04/18. His troponins were elevated and EKG showed findings consistent with recent heart attack. He was initially placed on a heparin drip and cardiology was contacted. When seen this morning, patient is comfortable with no concerns/complaints. Patient was seen by visitor services associate, Dr. Farrell, who felt patient is safe for discharge with plan to keep his scheduled PCI on Monday. Patient is safe/stable for discharge. Discharge discussed with: patient - Time Spent with Patient Total time spent providing and/or coordinating discharge services: Greater than 30 minutes - Discharge Medications Home Medications: Aspirin [Lo-Dose Aspirin EC] 81 mg PO DAILY 03/31/18 [History] HYDROcodone/Acet 10/325 mg [[place] 10-325 mg] 1 tab PO Q6H PRN 03/31/18 [History] Lisinopril [Zestril] 5 mg PO DAILY 03/31/18 [History] Metoprolol Succinate [Toprol Xl] 25 mg PO DAILY 03/31/18 [History] Nitroglycerin [Nitrostat] 0.4 mg PO Q5M PRN 03/31/18 [History] Oxycodone HCl 5 mg PO Q6H PRN 03/31/18 [History] Rosuvastatin Calcium 40 mg PO HS 03/31/18 [History] Ticagrelor [Brilinta] 90 mg PO BID 03/31/18 [History] Varenicline Tartrate [Chantix Starting Month ] 1 tab PO PER PKG DI 03/31/18 [ History] Allergies/Adverse Reactions: 3 Allergy/AdvReac Type Severity Reaction Status Date / Time No Known Allergies Allergy Verified 03/31/18 16:18 Date of admission: 03/31/18 20:19 Primary care physician: Stacy Bernard Discharging clinician: Javier Quinn - Constitutional Vitals: Temp Pulse Resp BP Pulse Ox 98.5 F 57 20 109/57 95 04/01/18 07:09 04/01/18 07:09 04/01/18 07:09 04/01/18 07:09 04/01/18 07:09 General appearance: Present: cooperative, A&O X 3, pleasant, no acute distress, answers questions appropriately Exam: General: Cooperative, pleasant, no acute distress, alert and oriented 3, answers questions appropriately HEENT: Normocephalic, atraumatic, Conjunctiva pink, sclera anicteric,oral mucosa dry, no orophargeal erythema or exudates Respiratory: No accessory muscle usage, clear to auscultation bilaterally, no wheezes/rhonchi/rales appreciated Cardiovascular: Regular rate and rhythm, S1 and S2 present, no murmurs/rubs/ gallops/clicks appreciated GI/abdominal: Nondistended, nontender, soft, normal bowel sounds, no peritoneal signs Extremities: No calf tenderness, no pedal edema appreciated, warm, lower extremity pulses palpable and symmetrical Neurological: Alert and oriented 3, no facial droop, no focal deficits Skin: Dry, intact, normal color - Patient Status Disposition: Home, Self-Care Condition: Good Functional capacity at discharge: independent ambulation Overall status at discharge: patient is back to baseline - Discharge Instructions Instructions: Chest Pain (DC) Follow Up With: Peter Farrell MD [Partnered Physician] - (PLEASE KEEP PREVIOUSLY SCHEDULED HEART CATH APPOINTMENT FOR Monday04-04-18. ) Stacy Bernard, CHANTELLE [Primary Care Provider] - (Please follow up in 1-2 weeks. (Unable to make appointment d/t not Minnie and Monday d/c)) Forms: ED Satisfaction Letter Additional Instructions: Please return to pursue room as development of chest pain, chest tightness, or chest pressure, if use ever any episodes of syncope or feel like her having another heart attack. Continue to take her previous home medications Please maintain your appointment for follow-up PCI on 04/04/18 Please follow-up with her PCP in 1-2 weeks - Diet and Activity Activity: increase activity as tolerated Diet: low fat, low cholesterol - VTE Reasons for not Prescribing Prophylaxis: Not indicated-Anticoagulated or INR therapeutic <Kavon Randall T - Last Filed: 04/01/18 13:48> Date of Encounter: 04/01/18 - Discharge Diagnosis (1) Tobacco dependence Status: Chronic (2) NSTEMI (non-ST elevated myocardial infarction) Status: Ruled-out (3) Near syncope Status: Suspected (4) DVT prophylaxis Status: Acute Hospital course: Mr. Abdalla is a 62 year old male - Time Spent with Patient Total time spent providing and/or coordinating discharge services: Date of admission: 03/31/18 20:19 Primary care physician: Stacy Bernard - Constitutional Vitals: Temp Pulse Resp BP Pulse Ox 98.7 F 61 18 101/64 97 04/01/18 11:41 04/01/18 11:41 04/01/18 11:41 04/01/18 11:41 04/01/18 11:41 - Attending Attestation I examined this patient and my medical decision-making was reviewed with the Resident Physician on 04/01/18. I agree with the documented findings, disposition and treatment plan as described except to the extent set forth below. 62 M with recent Vfib arrest s/p PCI, presented due to uncontrolled anxiety. Patient denies having any cardiac symptoms or SOB. Elevated troponin on admission, peak of 1.19, patient denies any complains on eval, physical exam is unremarkable. Per cardiology, patient has an appointment on 04/04 for PCI, and can be discharged . There no other medical issues at this time. Rest of details as in the resident physician's documentation
--- NOTE | 2018-04-01 10:10 | Cardiology Consult Note ---
Date of Encounter: 04/01/18 Time of Encounter: 10:00 Assessment and Plan (1) Elevated troponin Current Visit: Yes Status: Acute Downtrending, no acute EKG changesand no chest pain. Not consistent with ACS and reflects recent STEMI/VF arrest6 days ago. (2) Anxiety Current Visit: Yes Status: Acute counseling (3) CAD (coronary artery disease) Current Visit: Yes Status: Acute ASa, brilinta, statin, BB and plan for PCI Wed. Qualifiers: Coronary Disease-Associated Artery/Lesion type: [place] artery [place] vs. transplanted heart: [place] heart Associated angina: without angina Qualified Code(s): I25.10 - Atherosclerotic heart disease of [place] coronary artery without angina pectoris Discussion w patient/family: The assessment and plan as outlined above was discussed with the patient and/or family members who expressed understanding and agreement. All questions were answered. Thank you for involving us in the care of your patient. Please call with any questions. History of Present Illness Consult date: 04/01/18 Consult reason: recent mi Chief complaint: anxiety History of present illness: Mr. Abdalla is a 62 year old male with anterolateral STEMI last Monday cw VF arrest x 2 and successful PCI proximal LAD LAVINIA x1 noted some anxious feeling yesterday with no chest/jaw/arm discomfort like previous CO. He had difficulty sleeping the previous night. He went to urgent care, had normal BP and they transferred him here. Troponin was drawn and mildly elevated in context of CO last week Past Med Surg Social Fam HX - Past Medical History Medical history: myocardial infarction Psychiatric history: no psych history - Past Surgical History Surgical History: angioplasty/stent - Social History Smoking Status: Current every day smoker Packs per day: 1 Smokeless Tobacco Status: No Alcohol use: none Drug use: none - Family History Father Family Member Ethnicity: Unknown Living Status: Hx Family Cardiac Disorders: Yes Medications and Allergies Aspirin [Lo-Dose Aspirin EC] 81 mg PO DAILY 03/31/18 [History] HYDROcodone/Acet 10/325 mg [[place] 10-325 mg] 1 tab PO Q6H PRN 03/31/18 [History] Lisinopril [Zestril] 5 mg PO DAILY 03/31/18 [History] Metoprolol Succinate [Toprol Xl] 25 mg PO DAILY 03/31/18 [History] Nitroglycerin [Nitrostat] 0.4 mg PO Q5M PRN 03/31/18 [History] Oxycodone HCl [Oxycodone HCl] 5 mg PO Q6H PRN 03/31/18 [History] Rosuvastatin Calcium [Rosuvastatin Calcium] 40 mg PO HS 03/31/18 [History] Ticagrelor [Brilinta] 90 mg PO BID 03/31/18 [History] Varenicline Tartrate [Chantix Starting Month FREDDY] 1 tab PO PER PKG DI 03/31/18 [ History] 3 Allergy/AdvReac Type Severity Reaction Status Date / Time No Known Allergies Allergy Verified 03/31/18 16:18 All Systems Review: The remainder of the systems were reviewed and are negative - Constitutional Constitutional: no chills, no fever(s) - EENT Eyes: no blurred vision, no loss of vision Nose, mouth and throat: no dysphagia, no epistaxis - Cardiovascular Cardiovascular: no chest pain at rest, no chest pain with exertion - Respiratory Respiratory: no hemoptysis, no wheezing - Gastrointestinal Gastrointestinal: no hematemesis, no hematochezia - Genitourinary Genitourinary: no hematuria, no nocturia - Musculoskeletal Musculoskeletal: no muscle weakness, no myalgias - Integumentary Integumentary: no erythema, no unusual bruising - Neurological Neurological: no syncope, no tingling - Psychiatric Psychiatric: anxiety, no hallucinations - Hematological/Lymphatic Hematologic/Lymphatic: no easy bleeding, no easy bruising Physical Examination Vital Signs, Last 4 Hours Temp Pulse Resp BP Pulse Ox 04/01/18 09:00 60 119/74 96 04/01/18 07:09 98.5 F 57 20 109/57 95 General: Conversant HEENT: Atraumatic Neck: No JVD Cardiac: Reg Rate and Rhythm Lungs: Normal Breath Sounds Neuro: Alert and responsive Abdomen: Soft Skin: No rashes noted on visualized skin Musculoskeletal: No Chest Wall Tenderness Extremities: No Edema Results 04/01/18 03:09 04/01/18 03:09 Lab Results 03/31/18 03/31/18 03/31/18 20:49 20:49 20:49 WBC 12.6 H Hgb 14.1 Hct 41.5 Plt Count 240 INR 1.1 APTT 29.2 Sodium Potassium Chloride Carbon Dioxide BUN Creatinine Glucose Calcium Magnesium Total Bilirubin AST ALT Alkaline Phosphatase Troponin I 1.19 H* 04/01/18 04/01/18 04/01/18 03:09 03:09 03:09 WBC 12.0 H Hgb 13.2 Hct 39.3 Plt Count 229 INR 1.1 APTT Sodium Potassium Chloride Carbon Dioxide BUN Creatinine Glucose Calcium Magnesium Total Bilirubin AST ALT Alkaline Phosphatase Troponin I 1.01 H* 04/01/18 04/01/18 03:09 03:09 WBC Hgb Hct Plt Count INR APTT 47.6 H D Sodium 139 Potassium 4.1 Chloride 107 Carbon Dioxide 26 BUN 14 Creatinine 0.82 Glucose 108 H Calcium 9.1 Magnesium 1.9 Total Bilirubin 0.3 AST 13 ALT 28 Alkaline Phosphatase 60 Troponin I - EKG Interpretation EKG results cardiology: personally reviewed (anteriorMI, old) Consult Discharge Plan - Plan Referrals: Stacy Bernard, CONTRACTS REPRESENTATIVE [Primary Care Provider] -
[2018-04-01 11:43] VITALS: BP 101/64
--- NOTE | 2018-04-02 13:14 | Electrocardiograph Report ---
[place] [address] Test Date: 2018-04-01 Pat Name: Nic Abdalla Department: 110 Room: 2N03 Gender: M Diet Consultant: : 1955 Requested By: Ryan Stone MD Order Number: [id number] Reading MD: Peter Farrell Measurements Intervals [place] Rate: 55 P: 28 RI: 158 QRS: 15 QRSD: 91 T: 54 QT: 372 QTc: 361 Interpretive Statements SINUS BRADYCARDIA Poor R wave progression Electronically Signed On 04-02-2018 10:07:27 EDT by Peter Farrell
--- NOTE | 2018-04-02 15:33 | Electrocardiograph Report ---
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
== END 2018-04-01 12:42 | disposition home or self-care (01) | DRG 282 ==
LOC: EMEROO 13:46 → 3BNU 13:46 → 2NNU 20:17 → SUATTDRO 20:19
PROVIDERS: ADMIT Nurse Practitioner Family; ATTEND Internal Medicine